=== PATIENT | female | born 1960 | race Caucasian/White ===

== ENCOUNTER 2018-02-23 02:07 | Observation (INO) | payer MEDICARE ==
[2018-02-23] VITALS (18 sets, daily range): BP systolic 80–138; BP diastolic 41–70
[~2018-02-23] VITALS: Ht 160 cm; Wt 97.0 kg
--- NOTE | 2018-02-23 02:07 | NUR ---
BY EMS TO ROOM 12
[2018-02-23] MEDS ORDERED: ESCITALOPRAM OX10 MG PO (02:29)
[2018-02-23] MEDS ORDERED: ATENOLOL25 MG PO (02:30)
[2018-02-23] MEDS ORDERED: ARMODAFINIL200 MG PO (02:31)
[2018-02-23] MEDS ORDERED: LYRICA50 MG PO (02:32)
[2018-02-23] MEDS ORDERED: VOLTAREN - GENE75 MG PO (02:33)
[2018-02-23] MEDS ORDERED: REXULTI0.5 MG PO (02:33)
[2018-02-23 02:34] LABS: HEMOGLOBIN 13.4 g/dl (12.0-16.0); IMMATURE GRANULOCYTES 0.3 % (0.0-5.0); MEAN CELL VOLUME 92.1 fL CALC (80.0-100.0); MEAN CORPUSCULAR HGB 30.1 pG CALC (26.0-32.0); MEAN CORPUSCULAR HGB CONC 32.7 g/L CALC (32.0-36.0); NEUT# 3.62 thou/uL (2.00-7.15); RED BLOOD COUNT 4.45 mill/uL (4.20-5.60); RED CELL DISTRI WIDTH 14.2 % (11.5-15.5)
[2018-02-23 02:49] LABS: ALBUMIN 4.2 g/dL (3.2-5.0); ALKALINE PHOSPHATASE 115 u/l (38-126); ANION GAP 15 (6-22 (CALC)); BILIRUBIN, TOTAL 0.5 mg/dL (0.0-1.4); BUN 29 mg/dL (7-17); BUN/CREATININE RATIO 29 (12-20 (CALC)); CARBON DIOXIDE 22 mmol/l (22-30); CHLORIDE 108 mmol/l (95-108); GFR 57 ML/MIN (>=60 (CALC)); GFR FOR AFR.AMER. > 60 ML/MIN (>=60 (CALC)); POTASSIUM 3.9 mmol/l (3.5-5.1); SGOT/AST 28 u/l (14-36); SODIUM 142 mmol/l (137-146); TOTAL PROTEIN 7.7 g/dL (6.3-8.2)
[2018-02-23 02:55] LABS: ACT PARTIAL THROMBO TIME 25.9 SECONDS (20.0-32.5); D-DIMER 0.29 mg/L (0.19-0.60); PROTHROMBIN TIME 10.1 SECONDS (9.0-12.5)
[2018-02-23 03:02] LABS: MYOGLOBIN 51 ng/mL (0 - 62)
[2018-02-23 03:21] LABS: TSH, 3RD GENERATION 3.97 uIU/mL (0.47 - 4.68)
--- NOTE | 2018-02-23 03:30 | NUR ---
PT RELATED CHEST PAIN 2-3
--- NOTE | 2018-02-23 03:43 | NUR ---
DR ANGELES AT BEDSIDE
--- NOTE | 2018-02-23 04:12 | NUR ---
REPORT GIVEN TO MARYCARMEN COLLAZO.
--- NOTE | 2018-02-23 04:15 | NUR ---
PT RELATED SHE FEELS BETTER. HR 80'S AFIB.
--- NOTE | 2018-02-23 04:25 | NUR ---
PT TO ICU VIA [facility] WITH RN.
--- NOTE | 2018-02-23 04:35 | NUR ---
PT TO ICU BED 1 VIA STRETCHER ACCOMPANIED BY ER STAFF. PT ABLE TO TRANSFER SELF TO BED. PT IS ALERT AND ORIENTED X3. ADMISSION ASSESSMENT COMPLETED AT THIS TIME. NITRO PASTE TO ABD REMOVED DUE TO BP 95/55. IV PATENT X1. PLAN OF CARE REVEIWED WITH PATIENT. LOVENOX GIVERN PER MD ORDERS AND MAR. ORIENTED PT TO ROOM AND UNIT AND CALL LIGHT SYSTEM. CALL LIGHT IN REACH. WILL CONTINUE TO MONITOR
--- NOTE | 2018-02-23 05:15 | NUR ---
CARDIZEM STOPPED DUE TO BP 80/48.
--- NOTE | 2018-02-23 05:20 | NUR ---
DR BERG NOTIFIED OF BP AND DC OF CARDIZEM DUE TO BP.
--- NOTE | 2018-02-23 05:46 | NUR ---
BP 78/51. MANUAL 80/50. INSTRUCTED PT TO LAY ON BACK FOR NOW INSTEAD OF SIDE, WILL CONTINUE TO MONITOR. PT REAMINS AFIB ON MONITOR.
--- NOTE | 2018-02-23 06:00 | NUR ---
PT RESTING IN BED BP SEEMS TO BE STABILIZING AT THIS TIME. WITH A BP OF 93/51. CALL LIGHT IN REACH. WILL CONTINUE TO MONITOR.
--- NOTE | 2018-02-23 07:15 | NUR ---
PT DOZING AROUSES EASILY TO VERBAL STIMULI, AM ASSESSMENT COMPLTED, IVF STOPPED CARDIZEM HAS BEEN OFF SINCE PREVIOUS SHIFT SITRE SALINE LOCKED, LUNGS CLEAR NO SOB OR DISTRESS NOTED, ABD SOFT AND BS ACTIVE, NO EDEMA NOTED, TELE REDAIN A FIB RATE 90-110'S, AFEBRILE, NO COMPLAINTS OF DISCOMFORT, PT REQUESTING TO USE BATHROOM, AMBULATED TO BATHROOM WITH STEADY GAIT, VOIDED 700 ML CLEAR YELLOW URINE W/O INCIDENT, BACK TO BED ADN ALL MONITORING EQUIPMENT RE-APPLIED, HR SLIGHTLY ELEVATED AFTER ACITVITY, WILL CONTINUE TO MONITOR. CALL IRVIN WITHIN REACH.
--- NOTE | 2018-02-23 07:35 | NUR ---
SET UP ASSIST FOR AM MEAL, CALL IRVIN WITHIN REACH
--- NOTE | 2018-02-23 07:45 | NUR ---
HOT TEA PROVIDED FOR PT INSTEAD OF COFFEE PER HER REQUEST, ASKING TO SPEAK TO PRACTICING DERMATOLOGIST RELATED TO "GLUTEN ISSUES", DIETARY NOTIFIED
--- NOTE | 2018-02-23 07:55 | NUR ---
PT CONVERTED TO SR, RATE INT HE 80'S WILL NOTIFY RT FOR EKG.
--- NOTE | 2018-02-23 08:07 | NUR ---
TOLERAT AM MEAL WELL, CALL IRVIN WITHIN REACH
--- NOTE | 2018-02-23 08:12 | NUR ---
ADORE IN DIETARY AWARE OF NEW DIET ORDER, AND NUTRITIONAL CONSULT.
--- NOTE | 2018-02-23 08:22 | NUR ---
PT AMBULATED TO BATHROOM AGAIN WTIH SBA, CALL IRVIN WITHIN REACH
--- NOTE | 2018-02-23 08:34 | NUR ---
SEWING MACHINE OPERATOR SEMIAUTOMATIC AT BEDSIDE.
--- NOTE | 2018-02-23 10:18 | NUR ---
IN TO SEE PT, PLAN OF CARE DISUSSED
--- NOTE | 2018-02-23 10:40 | NUR ---
PT BROUGHT HOME MEDICATION IN FOR VERIFICATION, PHARMACY NOTIFIED, CALL WITHIN REACH.
--- NOTE | 2018-02-23 11:33 | NUR ---
SET UP ASSIST FOR LUNCH PROVIDED, SPOUSE AT BEDSIDE, PT AMBULATES TO BATHROOM WITH STEADY GAIT, CALL IRVIN WITHIN REACH
--- NOTE | 2018-02-23 11:38 | NUR ---
1200 NITRO PASTE JOSÉ LUIS RELATED TO HR 59 AND BP 124/59, PT DENIES CHEST PAIN OR DISCOMFORT,
--- NOTE | 2018-02-23 13:04 | NUR ---
PT AMBULATED TO BATHROOM WITH STEADY GAIT AND NELLI BY ASSIST
--- NOTE | 2018-02-23 13:45 | NUR ---
PT BACK IN BED, RESTING WITH NO COMPLAINTS, VOIDS MODERATE AMOUNTS CLEAR YELLOW URINE, WILL CONTINUE TO MONITOR
--- NOTE | 2018-02-23 14:24 | NUR ---
PT AWARE OF PLANNED TRASNFER TO MED SURG WHEN BED AVAILABLE, CURRENTLY VISITING WITH VISITORS AT BEDSIDE, NO COMPLAINTS OF S/S OF DISTRESS/DISCOMFORT NOTED, WILL CONTINUE TO MONITOR
--- NOTE | 2018-02-23 15:12 | NUR ---
PT AMBULATED TO BATHROOM AND BACK WITH STAND BY ASSIST, CALL IRVIN WITHIN REACH, WILL CONTINUE TO MONITOR.
--- NOTE | 2018-02-23 15:15 | NUR ---
Spoke with patient about interaction concerns with armodafinil and esmolol and rexualti and esmolol in regards to arrhythmias. Explained that there is a risk of arrhythmias and BP changes but they are rare. Patient also concerned about bruising with diclofenac, which we explained there is a rare 3% risk. We advised the patient to tell her new PCP about her bleeding. We also counseled her on Eliquis.
--- NOTE | 2018-02-23 16:00 | NUR ---
PHLEBOTOMTY AT BEDSIDE FRO LAB DRAW
--- NOTE | 2018-02-23 17:12 | NUR ---
PT AMBULATES TO BATHROOM WITH STEADY GAIT, TOLERATES ACTIVITY WELL, SET UP ASSIST PROVIDED FOR PM MEAL.
--- NOTE | 2018-02-23 18:04 | NUR ---
PT TOLERATED PM MEAL, REMAINS IN SR WITH RATE 60-80, BPO STABLE, DENIES SOB OR CHEST PAIN, CALL IRVIN WITHIN REACH, WILL CONTINUE TO MONITOR.
--- NOTE | 2018-02-23 19:12 | NUR ---
REPORT FROM TAVIA COLLAZO. PT RESTING IN BED, ALERT AND ORIENTED X3. IV SITE APPEARS HEALTHY. PT DENIES ANY PAIN OR SOB. C/O SORE THROAT WILL CONTACT LEAD FORMER PHYSICIAN FOR [place]. ASSESSMENT COMPLETE. DISCUSSED POC. PT VERBALIZED UNDERSTANDING. CALL LIGHT WITHIN REACH. WILL CONTINUE TO MONITOR.
--- NOTE | 2018-02-23 23:02 | NUR ---
PT RESTING IN BED WITH EYES CLOSED. GUM SCORING MACHINE OPERATOR IN PLACE. RESPIRATIONS EVEN AND UNLABORED. CALL LIGHT WITHIN REACH. WILL CONTINUE TO MONITOR.
--- NOTE | 2018-02-24 03:05 | NUR ---
PT RESTING IN BED WITH EYES CLOSED. NO S/S OF DISTRESS NOTED. RESPIRATIONS EVEN AND UNLABORED. CALL LIGHT WITHIN REACH. WILL CONTINUE TO MONITOR.
[2018-02-24 04:00] VITALS: BP 143/62
[2018-02-24 05:30] LABS: HEMATOCRIT 39.2 % (37.0-47.0); HEMOGLOBIN 12.8 g/dl (12.0-16.0); IMMATURE GRANULOCYTES 0.2 % (0.0-5.0); MEAN CELL VOLUME 92.9 fL CALC (80.0-100.0); MEAN CORPUSCULAR HGB 30.3 pG CALC (26.0-32.0); MEAN CORPUSCULAR HGB CONC 32.7 g/L CALC (32.0-36.0); NEUT# 3.02 thou/uL (2.00-7.15); RED BLOOD COUNT 4.22 mill/uL (4.20-5.60); RED CELL DISTRI WIDTH 14.3 % (11.5-15.5)
[2018-02-24 05:56] LABS: ALBUMIN 3.7 g/dL (3.2-5.0); ALKALINE PHOSPHATASE 95 u/l (38-126); ANION GAP 10 (6-22 (CALC)); BILIRUBIN, TOTAL 0.6 mg/dL (0.0-1.4); BUN 20 mg/dL (7-17); BUN/CREATININE RATIO 26 (12-20 (CALC)); CARBON DIOXIDE 24 mmol/l (22-30); CHLORIDE 111 mmol/l (95-108); CREATININE 0.8 mg/dL (0.5-1.0); GFR > 60 ML/MIN (>=60 (CALC)); GFR FOR AFR.AMER. > 60 ML/MIN (>=60 (CALC)); MAGNESIUM 1.9 mg/dL (1.6-2.3); SGOT/AST 22 u/l (14-36); SODIUM 141 mmol/l (137-146); TOTAL PROTEIN 6.5 g/dL (6.3-8.2)
--- NOTE | 2018-02-24 06:09 | NUR ---
REPORT CALLED TO HARMEET SPAULDING ON [email or web address]. PT GOING TO ROOM 273.
[2018-02-24 06:25] VITALS: BP 97/65
--- NOTE | 2018-02-24 06:25 | NUR ---
PT ARRIVED TO THE UNIT VIA WC ACCOMPANIED BY STAFF. IV SITE IS INTACT. TELE MONITOR IN PLACE. PT AMBULATED TO THE BED WITHOUT ANY DIFFICULTY.
[2018-02-24 08:26] VITALS: BP 126/60
--- NOTE | 2018-02-24 08:26 | NUR ---
PT RESTING IN BED NO SIGNS OF DISTRESS NOTED, RESP EVEN AND UNLABORED. ALERT AND ORIENTED X3, DISCUSSED POC, HR WNL DENIES CP. ASSESSMENT COMPLETED AT THIS TIME. VSS, MEDICATED PER MAR, EDUCATED ON METOPROLOL, CALL LIGHT IN REACH, CONTINUE TO MONITOR.
--- NOTE | 2018-02-24 10:17 | NUR ---
VISITOR AT BEDSIDE, NEW BATTERIES PLACED IN TELEMETRY. PT VOICES NO NEEDS OR COMPLAINTS AT THIS TIME. CALL LIGHT IN REACH,CONTINUE TO MONITOR.
[2018-02-24 11:20] LABS: CHOLESTEROL HDL RATIO 8.1 (<4.4 (CALC))
[2018-02-24 11:43] VITALS: BP 143/67
[2018-02-24 15:35] VITALS: BP 124/70
[2018-02-24] MEDS ORDERED: ELIQUIS2.5 MG PO (16:10)
[2018-02-24] MEDS ORDERED: ZETIA10 MG PO (16:31)
--- NOTE | 2018-02-24 17:13 | NUR ---
Discharge instructions given. Patient verbalizes understanding of same. Discharged in stable condition via Wheelchair to Home with spouse. All belongings sent with pt.
[2018-02-25] MEDS ORDERED: TRAMADOL HCL50 MG PO (20:04)
[2018-02-25] MEDS ORDERED: FLEXERIL5 MG PO (20:05)
[2018-02-25] MEDS ORDERED: ALPRAZOLAM1 MG PO (20:06)
[2018-02-25] MEDS ORDERED: FLONASE AL50 MCG/ACT NAB (20:07)
[2018-02-25] MEDS ORDERED: VENTOLIN HFA IN (20:07)
[2018-02-25] MEDS ORDERED: DOXYCYCL HYC100 MG PO (21:26)
[2018-02-25] MEDS ORDERED: TORADOL PO (21:26)
== END 2018-02-24 17:18 | disposition home or self-care (01) ==
LOC: ED 02:07 → ED-I 03:20 → ED 03:52 → ICU 03:53 → MS2 03:53 → ICU 13:11 → MS2 02-24 06:25
PROVIDERS: Family Medicine; Internal Medicine Nephrology; Nurse Practitioner Family; ADMIT Internal Medicine; ATTEND Internal Medicine
DX: I48.0 Paroxysmal atrial fibrillation (principal); I10 Essential (primary) hypertension; M79.7 Fibromyalgia; M19.90 Unspecified osteoarthritis, unspecified site; F31.9 Bipolar disorder, unspecified; F43.10 Post-traumatic stress disorder, unspecified; G47.33 Obstructive sleep apnea (adult) (pediatric); J44.9 Chronic obstructive pulmonary disease, unspecified; E66.9 Obesity, unspecified; F41.0 Panic disorder [episodic paroxysmal anxiety]; F20.9 Schizophrenia, unspecified; T45.516A Underdosing of anticoagulants, initial encounter; Z91.128 Patient's intentional underdosing of medication regimen for other reason; Z68.37 Body mass index [BMI] 37.0-37.9, adult
CPT/HCPCS: J1650

== ENCOUNTER 2018-02-25 19:45 | Emergency (ER) | payer MEDICARE ==
[~2018-02-25] VITALS: Ht 160 cm; Wt 95.9 kg
[~2018-02-25 19:45] MED LIST: ARMODAFINIL200 MG PO; ATENOLOL25 MG PO; ELIQUIS2.5 MG PO; ESCITALOPRAM OX10 MG PO; LYRICA50 MG PO; REXULTI0.5 MG PO; VOLTAREN - GENE75 MG PO; ZETIA10 MG PO
[2018-02-25] MEDS ORDERED: TRAMADOL HCL50 MG PO (20:04)
[2018-02-25] MEDS ORDERED: FLEXERIL5 MG PO (20:05)
[2018-02-25] MEDS ORDERED: ALPRAZOLAM1 MG PO (20:06)
[2018-02-25] MEDS ORDERED: FLONASE AL50 MCG/ACT NAB (20:07)
[2018-02-25] MEDS ORDERED: VENTOLIN HFA IN (20:07)
[2018-02-25 20:17] LABS: HEMOGLOBIN 12.9 g/dl (12.0-16.0); IMMATURE GRANULOCYTES 0.2 % (0.0-5.0); MEAN CELL VOLUME 91.3 fL CALC (80.0-100.0); MEAN CORPUSCULAR HGB 30.2 pG CALC (26.0-32.0); MEAN CORPUSCULAR HGB CONC 33.1 g/L CALC (32.0-36.0); NEUT# 5.74 thou/uL (2.00-7.15); RED BLOOD COUNT 4.27 mill/uL (4.20-5.60); RED CELL DISTRI WIDTH 14.1 % (11.5-15.5)
[2018-02-25 20:56] LABS: ALKALINE PHOSPHATASE 93 u/l (38-126); ANION GAP 12 (6-22 (CALC)); BILIRUBIN, TOTAL 0.4 mg/dL (0.0-1.4); BUN 29 mg/dL (7-17); BUN/CREATININE RATIO 32 (12-20 (CALC)); CARBON DIOXIDE 24 mmol/l (22-30); CHLORIDE 109 mmol/l (95-108); CREATININE 0.9 mg/dL (0.5-1.0); GFR > 60 ML/MIN (>=60 (CALC)); GFR FOR AFR.AMER. > 60 ML/MIN (>=60 (CALC)); POTASSIUM 3.9 mmol/l (3.5-5.1); SGOT/AST 28 u/l (14-36); SODIUM 141 mmol/l (137-146); TOTAL PROTEIN 6.9 g/dL (6.3-8.2)
[2018-02-25 21:08] LABS: MYOGLOBIN 30 ng/mL (0 - 62)
[2018-02-25] MEDS ORDERED: DOXYCYCL HYC100 MG PO (21:26)
[2018-02-25] MEDS ORDERED: TORADOL PO (21:26)
[2018-02-25 21:50] VITALS: BP 127/63
== END 2018-02-25 21:50 | disposition home or self-care (01) ==
LOC: ED 19:45
PROVIDERS: Family Medicine
DX: M94.0 Chondrocostal junction syndrome [Tietze] (principal); J01.00 Acute maxillary sinusitis, unspecified; I48.91 Unspecified atrial fibrillation; M19.90 Unspecified osteoarthritis, unspecified site; I10 Essential (primary) hypertension; M79.7 Fibromyalgia; F41.9 Anxiety disorder, unspecified; F31.9 Bipolar disorder, unspecified; F20.9 Schizophrenia, unspecified

== ENCOUNTER 2018-03-09 10:22 | Observation (INO) | payer MEDICARE ==
[~2018-03-09] VITALS: Ht 160 cm; Wt 96.2 kg
[~2018-03-09 10:22] MED LIST changes: +ALPRAZOLAM1 MG PO; +DOXYCYCL HYC100 MG PO; +FLEXERIL5 MG PO; +FLONASE AL50 MCG/ACT NAB; +TORADOL PO; +TRAMADOL HCL50 MG PO; +VENTOLIN HFA IN
[2018-03-09 11:36] VITALS: BP 125/56
[2018-03-09 12:15] LABS: HEMATOCRIT 41.1 % (37.0-47.0); HEMOGLOBIN 13.4 g/dl (12.0-16.0); IMMATURE GRANULOCYTES 0.3 % (0.0-5.0); MEAN CELL VOLUME 92.6 fL CALC (80.0-100.0); MEAN CORPUSCULAR HGB 30.2 pG CALC (26.0-32.0); MEAN CORPUSCULAR HGB CONC 32.6 g/L CALC (32.0-36.0); NEUT# 4.3 thou/uL (2.00-7.15); RED BLOOD COUNT 4.44 mill/uL (4.20-5.60)
[2018-03-09 12:39] LABS: ALKALINE PHOSPHATASE 117 u/l (38-126); ANION GAP 13 (6-22 (CALC)); BILIRUBIN, TOTAL 0.3 mg/dL (0.0-1.4); BUN 25 mg/dL (7-17); BUN/CREATININE RATIO 28 (12-20 (CALC)); CARBON DIOXIDE 27 mmol/l (22-30); CHLORIDE 107 mmol/l (95-108); CREATININE 0.9 mg/dL (0.5-1.0); GFR > 60 ML/MIN (>=60 (CALC)); GFR FOR AFR.AMER. > 60 ML/MIN (>=60 (CALC)); POTASSIUM 4.6 mmol/l (3.5-5.1); SGOT/AST 20 u/l (14-36); SODIUM 142 mmol/l (137-146); TOTAL PROTEIN 6.9 g/dL (6.3-8.2)
[2018-03-09 13:22] LABS: URINE BILIRUBIN - DIPSTICK NEGATIVE (NEGATIVE); URINE BLOOD DIPSTICK NEGATIVE (NEGATIVE); URINE COLOR YELLOW; URINE GLUCOSE - DIPSTICK NEGATIVE (NEGATIVE); URINE KETONE NEGATIVE (NEGATIVE); URINE LEUK ESTERASE NEGATIVE (NEGATIVE); URINE NITRITE - DIPSTICK NEGATIVE (Negative); URINE PROTEIN - DIPSTICK NEGATIVE (NEG-TRACE); URINE UROBILINOGEN - DIPSTICK 0.2 E.U./dL (0.2)
[2018-03-09] MEDS ORDERED: ULTRAM50 M1 PO (13:54)
[2018-03-09] MEDS ORDERED: XANAX1 MG PO (13:59)
[2018-03-09] MEDS ORDERED: DIGOXIN0.125 MG PO (14:03)
[2018-03-09] MEDS ORDERED: LOPRESSOR50 M1 PO (14:08)
[2018-03-09] MEDS ORDERED: MAGNESIUM500 M2 PO (14:16)
[2018-03-09] MEDS ORDERED: [UNRECOGNIZED DRUG - OTHER] PO (14:20)
[2018-03-09] MEDS ORDERED: FISH OIL1000 MG PO (14:21)
[2018-03-09] MEDS ORDERED: PROBIOTI3 (14:22)
[2018-03-09] MEDS ORDERED: [UNRECOGNIZED DRUG - OTHER] PO (14:48)
[2018-03-09 15:37] VITALS: BP 115/55
== END 2018-03-09 20:28 | disposition home or self-care (01) ==
LOC: MS2 10:22
PROVIDERS: ADMIT Internal Medicine Geriatric Medicine; ATTEND Internal Medicine Geriatric Medicine
DX: R42 Dizziness and giddiness (principal); R53.1 Weakness; R07.9 Chest pain, unspecified; I10 Essential (primary) hypertension; I34.1 Nonrheumatic mitral (valve) prolapse; F41.1 Generalized anxiety disorder; I25.10 Atherosclerotic heart disease of native coronary artery without angina pectoris; K21.9 Gastro-esophageal reflux disease without esophagitis; K27.9 Peptic ulcer, site unspecified, unspecified as acute or chronic, without hemorrhage or perforation; F20.9 Schizophrenia, unspecified; G47.33 Obstructive sleep apnea (adult) (pediatric); F31.9 Bipolar disorder, unspecified; Z91.81 History of falling

== ENCOUNTER 2018-03-21 13:25 | Observation (INO) | payer MEDICARE ==
[~2018-03-21] VITALS: Ht 160 cm; Wt 96.2 kg
[~2018-03-21 13:25] MED LIST changes: +DIGOXIN0.125 MG PO; +FISH OIL1000 MG PO; +LOPRESSOR50 M1 PO; +MAGNESIUM500 M2 PO; +PROBIOTI3; +ULTRAM50 M1 PO; +XANAX1 MG PO; +[UNRECOGNIZED DRUG - OTHER] PO; +[UNRECOGNIZED DRUG - OTHER] PO
--- NOTE | 2018-03-21 13:36 | NUR ---
to tx room with steady gait
--- NOTE | 2018-03-21 13:40 | NUR ---
IN ROOM 15. CALLED TO LET HIM KNOW THAT SHE IS IN ER. COOPERATIVE. HEART MONITOR (FROM DR SHEPPARD'S OFFICE IS IN PLACE)
--- NOTE | 2018-03-21 14:00 | NUR ---
UNABLE TO REMOVE WEDDING BAND "FINGER TOO SWOLLEN". PT KEEPING GLASSES.
--- NOTE | 2018-03-21 14:20 | NUR ---
PT REPORTS SHE SEES DR WEAVER AT DR QUINTERO'S OFFICE IN [place]
[2018-03-21 14:44] LABS: BARBITURATES NEGATIVE (NEGATIVE); COCAINE NEGATIVE (NEGATIVE); METHADONE NEGATIVE (NEGATIVE); OXCYCODONE NEGATIVE (NEGATIVE); TETRAHYDROCANNABIONOL NEGATIVE (NEGATIVE); TRICYLIC ANTIDEPRESSANTS NEGATIVE (NEGATIVE)
[2018-03-21 14:55] LABS: HEMATOCRIT 39.7 % (37.0-47.0); HEMOGLOBIN 12.9 g/dl (12.0-16.0); IMMATURE GRANULOCYTES 0.1 % (0.0-5.0); MEAN CELL VOLUME 93.6 fL CALC (80.0-100.0); MEAN CORPUSCULAR HGB 30.4 pG CALC (26.0-32.0); MEAN CORPUSCULAR HGB CONC 32.5 g/L CALC (32.0-36.0); NEUT# 4.45 thou/uL (2.00-7.15); RED BLOOD COUNT 4.24 mill/uL (4.20-5.60); RED CELL DISTRI WIDTH 14.7 % (11.5-15.5)
--- NOTE | 2018-03-21 15:00 | NUR ---
ASSUMING CARE PATIENT STATES CHEST PAIN AT THIS TIME 2 ON 0-10 SCALE. PATIENT DENIES SUICIDAL IDEATIONS AT THIS TIME. PATIENT STATES SUICIDAL IDEATIONS COME AND GO AND SHE JUST NEEDS HER MEDS ADJUSTED.
[2018-03-21 15:47] LABS: ANION GAP 14 (6-22 (CALC)); BUN 20 mg/dL (7-17); BUN/CREATININE RATIO 23 (12-20 (CALC)); CARBON DIOXIDE 27 mmol/l (22-30); CHLORIDE 106 mmol/l (95-108); CREATININE 0.9 mg/dL (0.5-1.0); ETHYL ALCOHOL 0 mg/dl (0-30); GFR > 60 ML/MIN (>=60 (CALC)); GFR FOR AFR.AMER. > 60 ML/MIN (>=60 (CALC)); POTASSIUM 4.2 mmol/l (3.5-5.1); SODIUM 143 mmol/l (137-146)
--- NOTE | 2018-03-21 16:03 | NUR ---
patient resting awaiting dispostion. patient denies any chest pain or suicidal ideation at this time
--- NOTE | 2018-03-21 16:35 | NUR ---
report called to icu patient awaiting admitting orders. patient denies any chest pain or suicidal ideations at this time
--- NOTE | 2018-03-21 16:36 | NUR ---
[employer] Telephone Clerk at bedside
--- NOTE | 2018-03-21 16:52 | NUR ---
PATIENT PRAYING WITH SOCIALLY RESPONSIBLE INVESTMENT ADVISER AND THEN WILL TRANSPORT TO ICU
--- NOTE | 2018-03-21 17:05 | NUR ---
PT ADMITTED TO ICU BED 4 [place] ACT MEDICALLY ON HOLD FOR COMPLAINT OF CHEST PAIN, PT ALERT AND ORIENTED, PLEASANT AND COOPERTAIVE, STATES SHE HAS HAD SIGNIFICANT STRESS RECENTLY AND THEN MEDICATION CHANGES RECENTLY AND FEELS THAT IT JUST CAUGHTER UP WITH HER AND SHE VERBALIZED THAT SHE THOUGHT ABOUT TAKING ALL OF HER PILLS TO THE MATERIAL ASSISTANT AT HER PCP OFFICE. PT DENIES FEELING THAT WAY AT THIS TIME, ADMISSION ASSESSMENT COMPLETED SEE INTERVENTIONS, LUNGS CLEAR NO SOB OR DISTRESS O2 PLACED PER CARDIAC PROTOCOL, NO EDEMA, TELE READING SR RATE INTHE 70-80'S BP STABLE, NOP COMPLAINTS OF PAIN OR DISCOMFORT, ALL MONITORING EQUIPMENT EXPLAINED PRIOR TO APPLICATION, CALL IRVIN WITHIN REACH, WILL CONTINUE TO MONITOR.
[2018-03-21 17:15] VITALS: BP 138/61
[2018-03-21 17:30] VITALS: BP 134/61
[2018-03-21 17:45] VITALS: BP 133/60
--- NOTE | 2018-03-21 17:45 | NUR ---
SET UP ASSIST PROVIDED FOR PM MEAL, CALL IRVIN WITHIN REACH
--- NOTE | 2018-03-21 18:34 | NUR ---
BROUGHT HOME CPAP MACHINE, WILL NOTIFY R.T. FOR SET UP
[2018-03-21 19:31] VITALS: BP 140/63
--- NOTE | 2018-03-21 20:15 | NUR ---
PT SITTING UP IN BED WATCHING TV. PT IS ALERT AND ORIENTED X3. SHIFT ASSESSMENT COMPLETED AT THIS TIME. IV PATENT. SITTER IN ROOM 1:1 WITH PT. CALL LIGHT IN REACH. WILL CONTINUE TO MONITOR.
[2018-03-21 20:40] VITALS: BP 110/62
--- NOTE | 2018-03-21 20:45 | NUR ---
HS MEDS GIVEN PER APR. SITTER REMAINS IN ROOM 1:1 WITH PT.
[2018-03-21 21:44] VITALS: BP 108/60
--- NOTE | 2018-03-21 22:34 | NUR ---
PT RESTING IN BED WITH EYES CLOSED. RESP ARE EVEN AND UNLABORED. NO DISTRESS NOTED. CALL LIGHT IN REACH. SITTER 1:1 IN ROOM. WILL CONTINUE TO MONIOTR.
[2018-03-22] VITALS (7 sets, daily range): BP systolic 92–113; BP diastolic 49–60
--- NOTE | 2018-03-22 | NUR ---
PATIENT RESTING IN BED, EYES CLOSED NO DISCOMFORTS NOTED AT THIS TIME, HOOKED TO CPAP WITH EVEN UNLABORED BREATHING, SITTER 1:1. WILL CONTINUE TO MONITOR.
--- NOTE | 2018-03-22 02:05 | NUR ---
PATIENT CURRENTLY RESTING IN BED, NO DISCOMFORTS NOTED AT THIS TIME, HOOKED TO CPAP MACHINE POX 98% WITH EVEN UNLABORED BREATHING, WITH AN ONGOING IVF OF D5%.45 NACL @75 CC/HR INFUSING WELL AT LAC, SITTER 1:1 IN ROOM, WILL CONTINUE TO MONITOR.
--- NOTE | 2018-03-22 03:51 | NUR ---
PATIENT RESTING IN BED, EYES CLOSED NO DISCOMFORTS NOTED AT THIS TIME, EVEN UNLABORED BREATHING, HOOKED TO CPAP, ON 1:1 SITTER, WILL CONTINUE TO MONITOR.
--- NOTE | 2018-03-22 05:08 | NUR ---
RT AT BEDSIDE COMPLETING AM EKG
--- NOTE | 2018-03-22 05:30 | NUR ---
PATIENT AWAKE, DENIES PAIN OR DISCONFORT AT THIS TIME, ASSISTED TO BEDSIDE COMMODE, THEN BACK TO BED, REMAINS ON 1:1.WILL CONTINUE TO MONITOR.
--- NOTE | 2018-03-22 06:07 | NUR ---
LIFE SCIENCES MANAGER AT BEDSIDE TO DRAW AM LABS
[2018-03-22 06:14] LABS: HEMATOCRIT 38.7 % (37.0-47.0); HEMOGLOBIN 12.6 g/dl (12.0-16.0); IMMATURE GRANULOCYTES 0.3 % (0.0-5.0); MEAN CELL VOLUME 94.4 fL CALC (80.0-100.0); MEAN CORPUSCULAR HGB 30.7 pG CALC (26.0-32.0); MEAN CORPUSCULAR HGB CONC 32.6 g/L CALC (32.0-36.0); NEUT# 2.79 thou/uL (2.00-7.15); RED BLOOD COUNT 4.1 mill/uL (4.20-5.60); RED CELL DISTRI WIDTH 14.8 % (11.5-15.5)
[2018-03-22 06:34] LABS: ALBUMIN 3.6 g/dL (3.2-5.0); ALKALINE PHOSPHATASE 103 u/l (38-126); ANION GAP 11 (6-22 (CALC)); BILIRUBIN, TOTAL 0.5 mg/dL (0.0-1.4); BUN 13 mg/dL (7-17); BUN/CREATININE RATIO 19 (12-20 (CALC)); CARBON DIOXIDE 26 mmol/l (22-30); CHLORIDE 108 mmol/l (95-108); CREATININE 0.7 mg/dL (0.5-1.0); GFR > 60 ML/MIN (>=60 (CALC)); GFR FOR AFR.AMER. > 60 ML/MIN (>=60 (CALC)); POTASSIUM 4.2 mmol/l (3.5-5.1); SGOT/AST 25 u/l (14-36); SODIUM 141 mmol/l (137-146); TOTAL PROTEIN 6.3 g/dL (6.3-8.2)
--- NOTE | 2018-03-22 07:25 | NUR ---
PT RESTING IN BED, ALERT AND OREINTED, AM ASSESSMENT COMPLETED SEE INTERVENTIONS, SKIN WARM AND DRY TELE READING SR-SB RATE IN THE 50-60'S, B/P STABLE SLIGHTLY HYPOTENSIVE BUT PT STATES IT HAPPENS OCCASIONALLY AT HOME, PT ASYMPTOMATIC, IV ACCESS INTACT IN LEFT AC, IVF INFUSING AT PRESCRIBED RATE, SITTER REMAINS AT BEDSIDE FOR SAFETY, LUNGS CLEAR WITH NO SOB OR DISTRESS NOTED, ABD SOFT, BS ACTIVE, COMFORT MEASURES PROVIDED, CALL IRVIN WITHIN REACH, WILL CONTINUE TO MONITOR.
--- NOTE | 2018-03-22 08:19 | NUR ---
AT BEDSIDE, PLAN OF CARE DISCUSSED, PT OFFERS NO NE WCOMPLAINTS, CONTINUES TO DENY CHEST PAIN, DOES COMPLAIN OF OCCASIONAL ANXIETY (NOT NEW) COMFORT MEASURES PROVIDED, SITTER REMAINS AT BEDSIDE FOR SAFETY, WILL CONTINUE TO MONITOR.
--- NOTE | 2018-03-22 09:06 | NUR ---
P[T TOLERATED AM MEAL WELL, OFFERS NO COMPLAINTS, CALL IRVIN WITHIN REACH
--- NOTE | 2018-03-22 10:10 | NUR ---
HARRIS GREGORIO RN SPOKE WITH PEDRITO FROM [place], REPORT PROVIDED AWAITING PAPER WORK FROM [facility] FOR REVIEW, WILL NOTIFY [facility] STAFF WITH FINAL ACCEPTANCE.
--- NOTE | 2018-03-22 11:52 | NUR ---
PER AJITH Gordon/SWETA WILSON AT [facility] HAS GIVEN PT ACCEPTANCE AND BED ASSIGNMENT, WILL CALL [facility].
--- NOTE | 2018-03-22 13:05 | NUR ---
[facility] OFFICER AT BEDSIDE AMBULATED OFF UNIT WITH BELONGINGS SENT WITH OFFICER PT HAS CPAP IN HAND.
--- NOTE | 2018-03-22 13:05 | NUR ---
PT D/C'D TO [facility] ALL PAPERWORK SENT WITH OFFICER WELL
== END 2018-03-22 13:06 ==
LOC: ED 13:25 → ED-I 15:50 → ED 16:05 → ICU 16:07
PROVIDERS: Family Medicine; ADMIT Internal Medicine Geriatric Medicine; ATTEND Internal Medicine Geriatric Medicine
DX: R07.9 Chest pain, unspecified (principal); R45.851 Suicidal ideations; I10 Essential (primary) hypertension; I48.0 Paroxysmal atrial fibrillation; F31.9 Bipolar disorder, unspecified; F20.9 Schizophrenia, unspecified; E66.9 Obesity, unspecified; Z68.37 Body mass index [BMI] 37.0-37.9, adult; Z91.5 Personal history of self-harm

== ENCOUNTER 2018-04-26 18:31 | Emergency (ER) | payer MEDICARE ==
[~2018-04-26] VITALS: Ht 160 cm; Wt 95.0 kg
[2018-04-26] MEDS ORDERED: ABILIFY5 MG PO (19:11)
[2018-04-26] MEDS ORDERED: ATIVAN0.5 MG PO (19:12)
[2018-04-26] MEDS ORDERED: BENTYL10 MG PO (19:18)
[2018-04-26] MEDS ORDERED: OMEPRAZOLE20 M2 PO (19:19)
[2018-04-26 19:51] LABS: HEMATOCRIT 36.8 % (37.0-47.0); HEMOGLOBIN 12.1 g/dl (12.0-16.0); IMMATURE GRANULOCYTES 0.4 % (0.0-5.0); MEAN CELL VOLUME 92.2 fL CALC (80.0-100.0); MEAN CORPUSCULAR HGB 30.3 pG CALC (26.0-32.0); MEAN CORPUSCULAR HGB CONC 32.9 g/L CALC (32.0-36.0); NEUT# 6.43 thou/uL (2.00-7.15); RED BLOOD COUNT 3.99 mill/uL (4.20-5.60); RED CELL DISTRI WIDTH 15.4 % (11.5-15.5)
[2018-04-26 19:58] LABS: URINE BILIRUBIN - DIPSTICK NEGATIVE (NEGATIVE); URINE BLOOD DIPSTICK NEGATIVE (NEGATIVE); URINE COLOR YELLOW; URINE GLUCOSE - DIPSTICK NEGATIVE (NEGATIVE); URINE KETONE NEGATIVE (NEGATIVE); URINE LEUK ESTERASE NEGATIVE (NEGATIVE); URINE NITRITE - DIPSTICK NEGATIVE (Negative); URINE PH 5.5 (4.5-8.0); URINE PROTEIN - DIPSTICK NEGATIVE (NEG-TRACE); URINE SPECIFIC GRAVITY 1.015; URINE UROBILINOGEN - DIPSTICK 0.2 E.U./dL (0.2)
[2018-04-26 20:33] LABS: ALBUMIN 3.9 g/dL (3.2-5.0); ALKALINE PHOSPHATASE 106 u/l (38-126); ANION GAP 10 (6-22 (CALC)); BILIRUBIN, TOTAL 0.4 mg/dL (0.0-1.4); BUN 17 mg/dL (7-17); BUN/CREATININE RATIO 22 (12-20 (CALC)); CARBON DIOXIDE 27 mmol/l (22-30); CHLORIDE 107 mmol/l (95-108); CREATININE 0.8 mg/dL (0.5-1.0); GFR > 60 ML/MIN (>=60 (CALC)); GFR FOR AFR.AMER. > 60 ML/MIN (>=60 (CALC)); POTASSIUM 3.8 mmol/l (3.5-5.1); SGOT/AST 17 u/l (14-36); SODIUM 140 mmol/l (137-146); TOTAL PROTEIN 6.5 g/dL (6.3-8.2)
[2018-04-26 21:30] LABS: MYOGLOBIN 25 ng/mL (0 - 62)
[2018-04-26] MEDS ORDERED: ULTRAM50 M1 PO (22:43)
[2018-04-26 23:15] VITALS: BP 117/61
== END 2018-04-26 23:15 | disposition home or self-care (01) ==
LOC: ED 18:31
PROVIDERS: Emergency Medicine
DX: R10.31 Right lower quadrant pain (principal); I48.91 Unspecified atrial fibrillation; R07.9 Chest pain, unspecified; M79.604 Pain in right leg; Z98.61 Coronary angioplasty status
CPT/HCPCS: Q9967

== ENCOUNTER 2018-05-13 13:35 | Observation (INO) | payer MEDICARE ==
[~2018-05-13] VITALS: Ht 160 cm; Wt 96.0 kg
[~2018-05-13 13:35] MED LIST changes: +ABILIFY5 MG PO; +ATIVAN0.5 MG PO; +BENTYL10 MG PO; +OMEPRAZOLE20 M2 PO; -VENTOLIN HFA IN
--- NOTE | 2018-05-13 13:58 | NUR ---
PT IMMIDIATLY TO TX ROOM
--- NOTE | 2018-05-13 14:00 | NUR ---
RESTING IN NO ACUTE DISTRESS
[2018-05-13] MEDS ORDERED: LEXAPRO20 MG PO (14:05)
[2018-05-13] MEDS ORDERED: LYRICA50 MG PO (14:06)
[2018-05-13 14:23] LABS: HEMATOCRIT 38.8 % (37.0-47.0); HEMOGLOBIN 12.4 g/dl (12.0-16.0); IMMATURE GRANULOCYTES 0.3 % (0.0-5.0); MEAN CELL VOLUME 91.5 fL CALC (80.0-100.0); MEAN CORPUSCULAR HGB 29.2 pG CALC (26.0-32.0); NEUT# 6.17 thou/uL (2.00-7.15); RED BLOOD COUNT 4.24 mill/uL (4.20-5.60); RED CELL DISTRI WIDTH 14.4 % (11.5-15.5)
--- NOTE | 2018-05-13 14:42 | NUR ---
MEDICATED ORDERED FOR PAIN/NAUSEA.
[2018-05-13 14:55] LABS: ALBUMIN 3.7 g/dL (3.2-5.0); ALKALINE PHOSPHATASE 107 u/l (38-126); ANION GAP 13 (6-22 (CALC)); BILIRUBIN, TOTAL 0.3 mg/dL (0.0-1.4); BUN 20 mg/dL (7-17); BUN/CREATININE RATIO 27 (12-20 (CALC)); CARBON DIOXIDE 23 mmol/l (22-30); CHLORIDE 108 mmol/l (95-108); CREATININE 0.7 mg/dL (0.5-1.0); GFR > 60 ML/MIN (>=60 (CALC)); GFR FOR AFR.AMER. > 60 ML/MIN (>=60 (CALC)); POTASSIUM 4.1 mmol/l (3.5-5.1); SGOT/AST 23 u/l (14-36); SODIUM 140 mmol/l (137-146); TOTAL PROTEIN 6.2 g/dL (6.3-8.2)
--- NOTE | 2018-05-13 15:00 | NUR ---
STATES PAIN 1/10, DOZING AT INTERVALS, DENIES NAUSEA
[2018-05-13 15:07] LABS: MYOGLOBIN 20 ng/mL (0 - 62)
--- NOTE | 2018-05-13 15:45 | NUR ---
TRANSPORTED VIA STRETCHER TO ROOM 262 WITH RN IN ATTENDANCE. PT WITH NEAR SYNCOPAL EPISODE OBSERVED, PLACED TO BED WITH ASSISTANCE X [address] SHEPPARD NOTIFIED, NO ORDERS GIVEN. NO CHANGE IN TELEMETRY DURING INCIDENT.
[2018-05-13 15:50] VITALS: BP 102/68
--- NOTE | 2018-05-13 15:50 | NUR ---
PT ARRIVED TO [facility]2 VIA STRETCHER ACCOMPIANED BY ZAY SOOD AND SPOUSE. PT AMBULATED FROM BED TO STRETCHER W/ ASSISTANCE. SEVERAL MOMENTS AFTER GETTING IN BED DERICK GUZMÁN CALLED OUT TO SPECIAL PROJECTS COORDINATOR. UPON MYSELF AND ZAY SOOD ENTERING PT LYING IN BED, NEAR PASSING OUT. BED ADJUSTED. O2 @2L APPLIED. VS DONE. PT APPEARED TO BE IN NO DISTRESS. VS STABLE. PT INSTRUCTED NOT TO GET OUT OF BED W/O ASSISTANCE BY ZAY SOOD DUE TO PREVIOUS PAIN MEDICATION ADMINISTRATION HAVING SIDE EFFECTS. PT STATES UNDERSTANDING. ASSESSMENT COMPLETED AT THIS TIME BY SPECIAL PROJECTS COORDINATOR. PT A/O X3. SPEECH IS CLEAR. PALE IN COLOR AT THIS TIME. PT C/O NAUSEA; LIGHTS DIMMED FOR COMFORT. PERRLA. RESP EVEN AND UNLABORED. LUNG SOUNDS CLEAR. TELE IN PLACE. BOWEL SOUNDS ACTIVE X4. ALL ABDOMINAL QUADRANTS TENDER. PT C/O EPIGASTRIC PAIN; SHARP/DULL. 8 OUT OF 10 ON PAIN SCALE. MEDICATION ADMINISTRATION DISCUSSED W/ PT. PT STATES UNDERSTANDING. REPOSITIONED IN BED FOR COMFORT. STRONG RADIAL AND PEDAL PULSES. #20 RFA SL. FLUSHED AND PATENT. SITE APPEARS HEALTHY. SKIN INTACT. PT DENIES ANY FURTHER NEEDS. POC DISCUSSED. SAFETY PRECAUTIONS IN PLACE. CALL LIGHT IN REACH. SPOUSE AT BEDSIDE. WILL CONTINUE TO MONITOR.
[2018-05-13 16:50] VITALS: BP 110/70
[2018-05-13 19:00] VITALS: BP 108/56
--- NOTE | 2018-05-13 20:03 | NUR ---
PATIENT RESTING IN BED WITH O2 VIA NASAL CANNUAL IN PLACE. PATIENT IS AWAKE ALERT AND ORIENTEDX3. PATIENT WITH C/O SEVERE EPIGASTRIC PAIN. MEDICATED WITH VALARIE MAGIC MOUTHWASH, BENTYL, PROTONIX FOR EPIGASTRIC PAIN. IV SITE TO RIGHT FOREARM INTACT WITH IVF NS PATENT AND INFUSING AT 125CC/HR. SITE IS HEALTHY AT THIS TIME. ABD IS SOFT WITH BS+. STATES THAT SHE HAD BM TODAY. DENIES ANY DIFFICULTY WITH URINATION. TELE MONITOR IN PLACE. NO PEDAL EDEMA NOTED AND PULSES ARE PALPABLE. SAFETY PRECAUTIONS REINFORCED. CALL LIGHT IN REACH. WILL CONT TO MONITOR.
--- NOTE | 2018-05-13 21:41 | NUR ---
PATIENT RESTING IN BED-AWAKE AND ALERT-CONT TO C/O CHEST PRESSURE 3/10 ON PAIN SCALE. SCHEDULED EKG DONE. NO NAUSEA AT THIS TIME. DR. SHEPPARD AWARE OF PATIENT COMPLAINTS. NO NEW ORDERS AT THIS TIME. CALL LIGHT IN REACH. WILL CONT TO MONITOR.
[2018-05-14] VITALS (7 sets, daily range): BP systolic 90–110; BP diastolic 45–62
--- NOTE | 2018-05-14 00:37 | NUR ---
PATIENT CONT TO C/O SHARP ABD PAIN AND CHEST PAIN-6/10 ON PAIN SCALE-MEDICATED WITH DILAUDID 1MG IVP FOR PAIN AND MYLANTA 300CC FOR ABD PAIN ORDERED. IVF PATENT AND INFUSING ORDERED. CALL LIGHT IN REACH. WILL CONT TO MONITOR. PATIENT WITH C-PAP IN PLACE.
--- NOTE | 2018-05-14 03:23 | NUR ---
APPEARS SLEEPING WITH C-PAP IN PLACE AND POSITIONED ON LEFT SIDE. IVF PATENT AND INFUSING ORDERED. TELE MONITOR IN PLACE. CALL LIGHT IN REACH. WILL CONT TO MONITOR.
[2018-05-14 06:43] LABS: ALBUMIN 3.2 g/dL (3.2-5.0); ALKALINE PHOSPHATASE 102 u/l (38-126); ANION GAP 10 (6-22 (CALC)); BILIRUBIN, TOTAL 0.4 mg/dL (0.0-1.4); BUN 17 mg/dL (7-17); BUN/CREATININE RATIO 20 (12-20 (CALC)); CARBON DIOXIDE 25 mmol/l (22-30); CHLORIDE 109 mmol/l (95-108); CHOLESTEROL HDL RATIO 5.4 (<4.4 (CALC)); CREATININE 0.8 mg/dL (0.5-1.0); GFR > 60 ML/MIN (>=60 (CALC)); GFR FOR AFR.AMER. > 60 ML/MIN (>=60 (CALC)); HDL CHOLESTEROL 48 mg/dL (>=40); SGOT/AST 40 u/l (14-36); SODIUM 140 mmol/l (137-146); TOTAL PROTEIN 5.6 g/dL (6.3-8.2); TOTAL TRIGLYCERIDES 106 mg/dl (30-149); VLDL CHOLESTROL 21 mg/dl (2-49 (CALC))
[2018-05-14 07:02] LABS: HEMATOCRIT 34.4 % (37.0-47.0); HEMOGLOBIN 10.8 g/dl (12.0-16.0); IMMATURE GRANULOCYTES 0.2 % (0.0-5.0); MEAN CORPUSCULAR HGB 29.8 pG CALC (26.0-32.0); MEAN CORPUSCULAR HGB CONC 31.4 g/L CALC (32.0-36.0); NEUT# 5.96 thou/uL (2.00-7.15); RED BLOOD COUNT 3.62 mill/uL (4.20-5.60); RED CELL DISTRI WIDTH 14.6 % (11.5-15.5)
--- NOTE | 2018-05-14 07:10 | NUR ---
PT REPORT RECIEVED FROM ZAY CANSECO. PT RESTING. NO S/S OF DISTRESS. CALL LIGHT IN REACH. WILL CONTINUE TO MONITOR.
[2018-05-14 07:28] LABS: CALCULATED LDLCHOLESTEROL 191 mg/dL (62-129 (CALC)); TOTAL CHOLESTEROL 260 mg/dl (0-199)
--- NOTE | 2018-05-14 08:04 | NUR ---
PT A/O X3. SPEECH IS CLEAR. RESP EVEN AND UNLABORED. LUNG SOUNDS CLEAR. TELE IN PLACE. BOWEL SOUNDS ACTIVE X4. STRONG RADIAL AND PEDAL PULSES. #20 RFA SL. FLUSHED AND PATENT. SITE APPEARS HEALTHY. SKIN INTACT. NO C/O PAIN OR NEEDS. CALL LIGHT IN REACH. WILL CONTINUE TO MONITOR.
--- NOTE | 2018-05-14 12:31 | NUR ---
PT EATING LUNCH, NO C/O PAIN OR NEEDS. CALL LIGHT IN REACH. WILL CONTINUE TO MONITOR
--- NOTE | 2018-05-14 16:00 | NUR ---
PT LYING IN BED WATCHING TELEVISION. NO C/O PAIN OR NEEDS. CALL LIGHT IN REACH. WILL CONTINUE TO MONITOR.
--- NOTE | 2018-05-14 19:00 | NUR ---
RECEIVEED REPORT FROM NURSE TOM, PATIENT IN BED, WATCHING TV, NO DISCOMFORTS NOTED ATHIS TIME.
--- NOTE | 2018-05-14 20:00 | NUR ---
PATIENT ALERT AND ORIENTEDX3 ABLE TO MAKE NEEDS KNOWN, WITH SALINE LOCK ON RT FOREARM,PATENT AND FLUSHES WELL, LAST BM 05/13, EVEN UNLABOREED BREATHING DENIES CHEST PAIN.[facility]
--- NOTE | 2018-05-14 23:43 | NUR ---
PATIENT INSTRUCTED ON NPO POST MIDNIGHT PT IS TO UNDERGO UPPER GI SERIES IN AM.
--- NOTE | 2018-05-15 03:33 | NUR ---
PATIENT APPEARS TO BE SLEEPING, WEARING CPAP WITH EVEN UNLABORED BREATHING, NO DISCOMFORTS NOTED AT THIS TIME, CALL LIGHT AT REACH
[2018-05-15 04:31] VITALS: BP 120/50
[2018-05-15 05:09] LABS: HEMOGLOBIN 11.3 g/dl (12.0-16.0); IMMATURE GRANULOCYTES 0.3 % (0.0-5.0); MEAN CELL VOLUME 93.3 fL CALC (80.0-100.0); MEAN CORPUSCULAR HGB 29.3 pG CALC (26.0-32.0); MEAN CORPUSCULAR HGB CONC 31.4 g/L CALC (32.0-36.0); NEUT# 4.37 thou/uL (2.00-7.15); RED BLOOD COUNT 3.86 mill/uL (4.20-5.60); RED CELL DISTRI WIDTH 14.5 % (11.5-15.5)
[2018-05-15 05:21] LABS: ALBUMIN 3.4 g/dL (3.2-5.0); ALKALINE PHOSPHATASE 107 u/l (38-126); ANION GAP 10 (6-22 (CALC)); BILIRUBIN, TOTAL 0.4 mg/dL (0.0-1.4); BUN 13 mg/dL (7-17); BUN/CREATININE RATIO 16 (12-20 (CALC)); CARBON DIOXIDE 29 mmol/l (22-30); CHLORIDE 106 mmol/l (95-108); CREATININE 0.8 mg/dL (0.5-1.0); GFR > 60 ML/MIN (>=60 (CALC)); GFR FOR AFR.AMER. > 60 ML/MIN (>=60 (CALC)); SGOT/AST 22 u/l (14-36); SODIUM 141 mmol/l (137-146); TOTAL PROTEIN 5.8 g/dL (6.3-8.2)
--- NOTE | 2018-05-15 06:34 | NUR ---
PATIENT APPEARS TO BE SLEEPING IN BED, WEARING CPAP, EVEN UNLABORED BREATHING NO DISCOMFORTS NOTED AT THIS TIME.
--- NOTE | 2018-05-15 06:55 | NUR ---
RPORT RECEIVED FROM NIGHT NURSE; PT LAYING IN BED AWAKE; AWARE OF NPO STATUS; EMPTIED 1000CC CLEAR YELLOW URINE; CALL IRVIN IN REACH.
[2018-05-15 07:30] VITALS: BP 109/53
--- NOTE | 2018-05-15 07:30 | NUR ---
ASSESSMENT COMPLETED; PT A/O X4; RESP EVEN AND UNLABORED ON ROOM AIR; IV TO RFA FLUSHED WITHOUT DIFFICUTLY, SITE APPEARS HEALTY; PHOTOGRAPHY SPOTTER INFORMED PT OF UPPER GI SERIES & NPO STATUS; AMBULATORY IN ROOM; SAFETY PRECAUTION REINFORCE; BED IN LOW LOCKED POSITION, CALL IRVIN IN REACH;.
[2018-05-15] MEDS ORDERED: FLONASE AL50 MCG/ACT NAB (09:09)
[2018-05-15] MEDS ORDERED: ESCITALOPRAM OX10 MG PO (09:09)
[2018-05-15] MEDS ORDERED: LYRICA50 MG PO ×2 (09:10→12:06)
[2018-05-15] MEDS ORDERED: ULTRAM50 M1 PO ×2 (09:10→12:06)
--- NOTE | 2018-05-15 11:00 | NUR ---
DR SHEPPARD WAS CALLED TWICE TO FINISH UP MED REC.
--- NOTE | 2018-05-15 11:55 | NUR ---
DR SHEPPARD CALLED AGAIN ON MED REC.
[2018-05-15] MEDS ORDERED: BENTYL10 MG PO (12:04)
[2018-05-15] MEDS ORDERED: ELIQUIS2.5 MG PO (12:05)
[2018-05-15] MEDS ORDERED: DIGOXIN0.125 MG PO (12:05)
[2018-05-15] MEDS ORDERED: ZETIA10 MG PO (12:05)
[2018-05-15] MEDS ORDERED: LOPRESSOR50 M1 PO (12:06)
[2018-05-15] MEDS ORDERED: ABILIFY5 MG PO (12:07)
[2018-05-15] MEDS ORDERED: OMEPRAZOLE20 M2 PO (12:07)
[2018-05-15] MEDS ORDERED: ATIVAN0.5 MG PO (12:07)
[2018-05-15] MEDS ORDERED: LEXAPRO20 MG PO (12:07)
[2018-05-15] MEDS ORDERED: FISH OIL1000 MG PO (12:08)
--- NOTE | 2018-05-15 12:17 | NUR ---
PT SITTING UP IN BED WATCHING TV; AWAITS D/C;
[2018-05-15] MEDS ORDERED: VENTOLIN HFA IN (12:29)
--- NOTE | 2018-05-15 12:39 | NUR ---
D/C INSTRUCTIONS GIVEN TO PT; HOTEL ASSOCIATE EDUCATE PT OF UPPER GI APPT ON 05/16 @0915, NPO AT MIDNIGHT; PT VERBALIZE UNDERSTANDING; IV REMOVE, CATH INTACT; PT NOW WAITING FOR HER RIDE; WILL CALL WHEN RIDE GETS HERE.
--- NOTE | 2018-05-15 12:51 | NUR ---
Discharge instructions given. Patient verbalizes understanding of same. Discharged in stable condition via Wheelchair to Home with family. All belongings sent with pt.
== END 2018-05-15 12:30 | disposition home or self-care (01) ==
LOC: ED 13:35 → ED-I 15:10 → ED 15:27 → MS2 15:28
PROVIDERS: Emergency Medicine; ADMIT Internal Medicine Geriatric Medicine; ATTEND Internal Medicine Geriatric Medicine
DX: R07.9 Chest pain, unspecified (principal); I10 Essential (primary) hypertension; I25.10 Atherosclerotic heart disease of native coronary artery without angina pectoris; F41.1 Generalized anxiety disorder; I48.0 Paroxysmal atrial fibrillation; F20.9 Schizophrenia, unspecified; G47.33 Obstructive sleep apnea (adult) (pediatric); M79.7 Fibromyalgia; K44.9 Diaphragmatic hernia without obstruction or gangrene; F31.9 Bipolar disorder, unspecified; K27.9 Peptic ulcer, site unspecified, unspecified as acute or chronic, without hemorrhage or perforation; K21.9 Gastro-esophageal reflux disease without esophagitis; E66.9 Obesity, unspecified; Z68.37 Body mass index [BMI] 37.0-37.9, adult
CPT/HCPCS: G0378

== ENCOUNTER 2018-07-12 15:19 | Emergency (ER) | payer MEDICARE ==
[~2018-07-12] VITALS: Ht 160 cm; Wt 97.0 kg
[~2018-07-12 15:19] MED LIST changes: +LEXAPRO20 MG PO; +VENTOLIN HFA IN
[2018-07-12] MEDS ORDERED: BUPROPION HCL300 MG PO (16:06)
[2018-07-12] MEDS ORDERED: BUPROPION HCL150 M1 PO (16:08)
[2018-07-12] MEDS ORDERED: LAMICTAL XR50 MG PO (16:13)
[2018-07-12] MEDS ORDERED: LYRICA75 MG PO (16:17)
[2018-07-12 16:18] LABS: HEMATOCRIT 40.7 % (37.0-47.0); HEMOGLOBIN 12.8 g/dl (12.0-16.0); IMMATURE GRANULOCYTES 0.5 % (0.0-5.0); MEAN CELL VOLUME 87.9 fL CALC (80.0-100.0); MEAN CORPUSCULAR HGB 27.6 pG CALC (26.0-32.0); MEAN CORPUSCULAR HGB CONC 31.4 g/L CALC (32.0-36.0); NEUT# 5.47 thou/uL (2.00-7.15); RED BLOOD COUNT 4.63 mill/uL (4.20-5.60); RED CELL DISTRI WIDTH 14.1 % (11.5-15.5)
[2018-07-12] MEDS ORDERED: XYZAL5 MG PO (16:18)
[2018-07-12] MEDS ORDERED: DYMISTA1 SPR (16:19)
[2018-07-12] MEDS ORDERED: ELIQUIS5 MG PO (16:20)
[2018-07-12] MEDS ORDERED: STOOL SOFTE1 PO (16:23)
[2018-07-12] MEDS ORDERED: VENTOLIN HFA IN (16:23)
[2018-07-12 16:43] LABS: ALKALINE PHOSPHATASE 127 u/l (38-126); ANION GAP 12 (6-22 (CALC)); BILIRUBIN, TOTAL 0.3 mg/dL (0.0-1.4); BUN 13 mg/dL (7-17); BUN/CREATININE RATIO 16 (12-20 (CALC)); CARBON DIOXIDE 25 mmol/l (22-30); CHLORIDE 107 mmol/l (95-108); CREATININE 0.8 mg/dL (0.5-1.0); GFR > 60 ML/MIN (>=60 (CALC)); GFR FOR AFR.AMER. > 60 ML/MIN (>=60 (CALC)); POTASSIUM 3.9 mmol/l (3.5-5.1); SGOT/AST 19 u/l (14-36); SODIUM 141 mmol/l (137-146)
[2018-07-12 16:54] LABS: ALBUMIN 4.4 g/dL (3.2-5.0); TOTAL PROTEIN 7.4 g/dL (6.3-8.2)
[2018-07-12 18:15] VITALS: BP 146/61
== END 2018-07-12 18:22 | disposition home or self-care (01) ==
LOC: ED 15:19
PROVIDERS: Emergency Medicine
DX: R07.89 Other chest pain (principal); I48.91 Unspecified atrial fibrillation; I10 Essential (primary) hypertension; I25.10 Atherosclerotic heart disease of native coronary artery without angina pectoris

== ENCOUNTER 2018-11-21 10:14 | Day surgery (SDC) | payer MEDICARE ==
[~2018-11-21 10:14] MED LIST changes: +BUPROPION HCL150 M1 PO; +BUPROPION HCL300 MG PO; +BUPROPN HCL300 MG PO; +DYMISTA1 SPR; +EFFEXOR XR37.5 MG PO; +ELIQUIS5 MG PO; +FLECAINIDE50 MG PO; +LAMICTAL XR50 MG PO; +LAMICTAL100 MG PO; +LORATADINE10 M2 PO; +LYRICA75 MG PO; +MULTIVITAMIN AD1 TA1 PO; +SINGULAIR10 MG PO; +SPIRONOLACTONE25 MG PO; +STOOL SOFTE1 PO; +VENTOLIN H108 MCG/AC; +WELLBUTRIN SR150 MG PO; +XYZAL5 MG PO
[2018-11-21 11:54] VITALS: BP 99/55
== END 2018-11-21 12:17 | disposition home or self-care (01) ==
LOC: ENDO 10:14 → ORM 11:00 → ENDO 12:17
PROVIDERS: ATTEND Surgery
PROC: 0DJ08ZZ Inspection of Upper Intestinal Tract, Via Natural or Artificial Opening Endoscopic (ICD-10-PCS; principal; 2018-11-21)
DX: K44.9 Diaphragmatic hernia without obstruction or gangrene (principal); I10 Essential (primary) hypertension; I48.91 Unspecified atrial fibrillation; I25.10 Atherosclerotic heart disease of native coronary artery without angina pectoris

== ENCOUNTER 2019-10-15 09:10 | Inpatient (IN) | payer MEDICARE ==
[~2019-10-15] VITALS: Ht 160 cm; Wt 90.0 kg
--- NOTE | 2019-10-15 09:35 | NUR ---
PT TO ROOM WITH WITH SOB
--- NOTE | 2019-10-15 10:40 | NUR ---
INITTIATED IV MEDS AND FLUIDS. PO FLUIDS GIVEN. O2 @2LPM VIA NC , O2 SAT 96%. PT IN NO DISTRESS.
[2019-10-15 11:05] LABS: HEMOGLOBIN 10.9 g/dl (12.0-16.0); IMMATURE GRANULOCYTES 0.6 % (0.0-5.0); MEAN CORPUSCULAR HGB 29.1 pG CALC (26.0-32.0); NEUT# 8.32 thou/uL (2.00-7.15); RED BLOOD COUNT 3.75 mill/uL (4.20-5.60); RED CELL DISTRI WIDTH 13.2 % (11.5-15.5)
[2019-10-15 11:29] LABS: ALBUMIN 3.3 g/dL (3.2-5.0); ALKALINE PHOSPHATASE 121 u/l (38-126); BILIRUBIN, TOTAL 0.7 mg/dL (0.0-1.4); BUN 15 mg/dL (7-17); BUN/CREATININE RATIO 18 (12-20 (CALC)); CARBON DIOXIDE 31 mmol/l (22-30); CHLORIDE 100 mmol/l (95-108); CREATININE 0.8 mg/dL (0.5-1.0); GFR > 60 ML/MIN (>=60 (CALC)); GFR FOR AFR.AMER. > 60 ML/MIN (>=60 (CALC)); SGOT/AST 41 u/l (14-36); SODIUM 137 mmol/l (137-146); TOTAL PROTEIN 6.8 g/dL (6.3-8.2)
[2019-10-15 11:39] LABS: ANION GAP 9 (6-22 (CALC)); POTASSIUM 2.9 mmol/l (3.5-5.1)
[2019-10-15 11:40] LABS: C-REACTIVE PROTEIN 21.6 mg/dL (0-0.9)
--- NOTE | 2019-10-15 11:40 | NUR ---
PT RESTING WITH O2 ON ORDERED. BECOMES TACHYPNEIC AND SOB WITH MINIMAL EXERTION
--- NOTE | 2019-10-15 12:00 | NUR ---
INITIATED IV MAGNESIUM ORDERED AND PO K GIVEN. PT UPDATED ON LABS AND POC. CONTINUES ON O2@3LPM VIA NC. PT IN NO DISTRESS AT THIS TIME
[2019-10-15 12:15] LABS: URINE BLOOD DIPSTICK TRACE-INTACT (NEGATIVE); URINE COLOR YELLOW; URINE GLUCOSE - DIPSTICK NEGATIVE (NEGATIVE); URINE KETONE 40 mg/dL (NEGATIVE); URINE NITRITE - DIPSTICK NEGATIVE (Negative); URINE PH 6.5 (4.5-8.0); URINE PROTEIN - DIPSTICK 30 mg/dL (NEG-TRACE)
[2019-10-15 12:16] LABS: URINE BACTERIA MODERATE hpf; URINE BILIRUBIN - DIPSTICK SMALL (NEGATIVE); URINE EPITHELIAL CELLS MANY EPI/hpf (0-FEW); URINE LEUK ESTERASE LARGE (NEGATIVE); URINE RBC 0-2 RBC/hpf (0-5); URINE WBC 20-50 WBC/hpf (0-5)
[2019-10-15] MEDS ORDERED: METOPROL TAR25 MG PO (12:56)
--- NOTE | 2019-10-15 13:45 | NUR ---
REPORT CALLED TO CHELLY GOFF MS
[2019-10-15 14:00] VITALS: BP 161/75
--- NOTE | 2019-10-15 14:00 | NUR ---
PT TRANSPORTED TO [facility] VIA STRETCHER ON O2@3LPM ANC WITH MASK IN PLACE.
--- NOTE | 2019-10-15 14:00 | NUR ---
PT ARRIVED TO [facility] ROOM 291 VIA STRETCHER IN STABEL CONDITION ACCOMPAINED BY ZAY SOSA. PT TRANSFERED ETO BED FROM STRETCHER WITH LITTLE DIFFICULTY, FALL RISK BAND APPLIED. INTRODUCED SELF TO TP AND DISCUSSED POC. ASSESSMENT AND VITALS COMPLETED AT THIS TIME. RESPRIATIONS ARE EVEN AND UNLABORED WITH NO SIGNS OF DISTRESS ON 3L NC. LUNG SOUNDS ARE DIMINISHED, PT REPORTS SOB ON EXCAERBATION. HEART RHYTHM IS NORMAL WITH TELE IN PLACE. BOWEL SOUNDS ARE HYPOACTIVE, LAST REPORTED BM 10/11/19, REINA NOTIFIED OF LAST BM . RADIAL AND PEDAL PULSES ARE STRONG WITH NORMAL CAPILLARY REFILL. #20G IN LAC RUNNING WITH NS AT 75ML ORDERED, SITE APPEARS HEALTHY AND PATENT. PT COMPLAINS OF 8/ HEADACHE, TYELNOL TO BE ADMINISTERED. PT INFORMS WRITTER OF ALLERGIES, ALERGY BAND APPLIED.PT TELLS WRITTER THAT SHE PRESENTED TO [facility] DUE TO INCREASING WEAKNESS. PT TESTED POSITIVE FOR COVID 19 ON 10/05/2019 WHEN SWABBED BY PCP.ISOLATION PRECAUTIONS EN FORCED. PT ORIENTED TO ROOM AND CALL LIGHT SYSTEM . ALL SAFTEY PRECAUTIONS ARE IN PLACE WITH CALL LIGHT IN REACH. WILL CONTINUE TO MONITOR
[2019-10-15 15:00] VITALS: BP 153/63
--- NOTE | 2019-10-15 16:23 | NUR ---
REASSESSMENT OF PAIN AT THIS TIME RESULTING IN 05/31. RESPIRATAIONS ARE EVEN AND UNLABORED WITH NO SIGNS OF DISTRESS. ALL SAFETY PRECAUTIONS ARE OIN PLCAE WITH CALL LIGHT IN REACH. WILL CONTINUE TO MONITOR
[2019-10-15] MEDS ORDERED: REPATHA140 MG/ML IM (17:09)
[2019-10-15 19:37] VITALS: BP 100/46
--- NOTE | 2019-10-15 21:00 | NUR ---
PATIENT ALERT ORINETED ABLE TO MAKE NEEDS KNONW, WITH ONGOING IV NS @ 75CC/HR INFUSING WELL ON LAC REMAINS ON TELE SR 90, C/O OF HEADACHE PS 10/31 WILL MEDICATE LBM 10/10, HOOKED TO 02 @ 3LPM VIA NC NOTED TO HAVE DIMINISHED BREATH SOUNDS ON BOTH LUNG MUÑOZ,EXERTIONAL DYSPNEA NOTED, CALL LIGHT AT REACH.
[2019-10-15 21:30] VITALS: BP 174/70
[2019-10-15] MEDS ORDERED: LYRICA50 MG PO (21:51)
[2019-10-15 23:20] VITALS: BP 121/55
--- NOTE | 2019-10-15 23:24 | NUR ---
PATIENT CALLED AND STATED THAT "FEELS LIKE SHE WILL PASSED OUT" V/S TAKEN POX ON 3 LPM 86-87 PERCENT, PATIENT ALSO STATED THAT SHE CANT LAY ON HER STOMACH, MILITARY COOK AND NURSE ASSISTED TO LAY ON SIDE, SEMI FOWLERS O2 INCREASED TO 4LPM VIA NC AND ENCOURAGED TO COUGH, O2 SAT WENT UP TO 92 % ON 4LPM, PATIENT STATED FEELS MUCH BETTER, WILL CONTINUE TO MONITOR.
[2019-10-16 04:17] VITALS: BP 155/58
[2019-10-16 04:58] LABS: HEMATOCRIT 31.9 % (37.0-47.0); HEMOGLOBIN 10.4 g/dl (12.0-16.0); IMMATURE GRANULOCYTES 0.6 % (0.0-5.0); MEAN CELL VOLUME 88.9 fL CALC (80.0-100.0); MEAN CORPUSCULAR HGB CONC 32.6 g/dL CAL (32.0-36.0); NEUT# 7.69 thou/uL (2.00-7.15); RED BLOOD COUNT 3.59 mill/uL (4.20-5.60); RED CELL DISTRI WIDTH 13.3 % (11.5-15.5)
[2019-10-16 05:19] LABS: ALBUMIN 2.8 g/dL (3.2-5.0); ALKALINE PHOSPHATASE 121 u/l (38-126); ANION GAP 11 (6-22 (CALC)); BILIRUBIN, TOTAL 0.4 mg/dL (0.0-1.4); BUN 14 mg/dL (7-17); BUN/CREATININE RATIO 20 (12-20 (CALC)); CARBON DIOXIDE 25 mmol/l (22-30); CHLORIDE 106 mmol/l (95-108); CREATININE 0.7 mg/dL (0.5-1.0); GFR > 60 ML/MIN (>=60 (CALC)); GFR FOR AFR.AMER. > 60 ML/MIN (>=60 (CALC)); SGOT/AST 31 u/l (14-36); SODIUM 138 mmol/l (137-146); TOTAL PROTEIN 5.6 g/dL (6.3-8.2)
[2019-10-16 05:34] LABS: C-REACTIVE PROTEIN 16.4 mg/dL (0-0.9)
--- NOTE | 2019-10-16 07:15 | NUR ---
REPORT RECEIVED FROM ZAY LOO.
--- NOTE | 2019-10-16 08:10 | NUR ---
PT RESTING IN SEMI FOWLERS POSITION,A&O X3;VS OBTAINED AND ASSESSMENT COMPLETED;PT DENIES ANY CURRENT PAIN OR DISCOMFORTS,PAIN SCALE AND REPORTING EDUCATED;RESPIRATIONS EVEN AND UNLABORED,SHALLOW ON O2 @ 4L VIA NC;ABDOMEN DISTENDED/SOFT ON PALPATION,PT REPORTED HAVING A BM TODAY;STRONG PEDAL PULSES;SKIN INTACT;TELE MONITORING IN PLACE;#20G TO LAC INFUSING NS @ 75ML/HR,SITE APPEARS HEALTHY;PT DENIES ANY ADDITIONAL NEEDS AT THIS TIME AND IS ENCOURAGED TO CALL FOR ASSISTANCE IF NEEDED;CALL LIGHT IN REACH;WILL CONTINUE TO MONITOR
[2019-10-16 08:11] VITALS: BP 149/62
--- NOTE | 2019-10-16 09:55 | NUR ---
HOME MEDICATIONS SENT TO PHARMACY FOR VERIFICATION. HOME METOPROLOL PLACED IN PHARMACY SECURED BAG IN PLACED IN PT CLOSET DUE TO COVID 19 DX.
[2019-10-16 10:59] VITALS: BP 112/52
--- NOTE | 2019-10-16 12:10 | NUR ---
PT RESTING IN SEMI FOWLERS POSITION;RESPIRATIONS EVEN AND UNLABORED ON O2 @ 4L VIA NC;PT DENIES ANY CURRENT PAIN OR DISCOMFORTS;TELE MONITORING IN PLACE;IV SITE PATENT AND ABX STARTED AT THIS TIME;PT DENIES ANY ADDITIONAL NEEDS;ENCOURAGED TO CALL FOR ASSISTANCE IF NEEDED;CALL LIGHT IN REACH;WILL CONTINUE TO MONITOR
[2019-10-16 15:09] VITALS: BP 111/49
--- NOTE | 2019-10-16 16:00 | NUR ---
PT RESTING IN SEMI FOWLERS POSITION;RESPIRATIONS EVEN AND UNLABORED ON O2 @ 4L VIA NC;PT DENIES ANY CURRENT PAIN OR NEEDS;TELE MONTORING IN PLACE;IV SITE PATENT AND INFUSING NS WITH EASE PER ORDER;ALL SAFETY PRECAUTIONS IN PLACE WITH CALL LIGHT IN REACH;WILL CONTINUE TO MONITOR
[2019-10-16 19:17] VITALS: BP 157/55
--- NOTE | 2019-10-16 20:28 | NUR ---
PT RESTING IN BED, NO SIGNS OF DISTRESS NOTED, RESP EVEN AND UNLABORED. PT ALERT AND ORIENTED X3, DISCUSSED POC, PT VOICES NO NEEDS OR COMPLAINTS AT THIS TIME. ASSESSMENT COMPLETED, CALL LIGHT IN REACH,CONTINUE TO MONITOR.
[2019-10-16 23:40] VITALS: BP 159/64
--- NOTE | 2019-10-17 | NUR ---
PT RESTING IN BED, VOICES NO NEEDS OR COMPLAINTS AT THIS TIME, CALL LIGHT IN REACH,CONTINUE TO MONITOR.
[2019-10-17 04:00] VITALS: BP 153/66
--- NOTE | 2019-10-17 04:15 | NUR ---
INFORMED BY DOG SHOW JUDGE PT C/O CP, TROPONIN OBTAINED, VSS, RT CALLED TO BEDSIDE FOR EKG. PT C/O PAIN 09/30, NO SIGNS OF DISTRESS NOTED, RESP EVEN AND UNLABORED. CALL LIGHT IN REACH,CONTINUE TO MONITOR.
--- NOTE | 2019-10-17 04:40 | NUR ---
PT RESTING IN BED, MEDICATED PER APR FOR PAIN, MD NOTIFIED, NO NEW ORDER RECEIVED. CALL LIGHT IN REACH,CONTINUE TO MONITOR.
--- NOTE | 2019-10-17 06:00 | NUR ---
PT RESTING IN BED, STATES HER PAIN IS "MUCH BETTER", VOICES NO NEEDS OR COMPLAINTS AT THIS TIME, CALL LIGHT IN REACH,CONTINUE TO MONITOR.
--- NOTE | 2019-10-17 07:10 | NUR ---
REPORT RECEIVED FROM CHELLY MADISON.
--- NOTE | 2019-10-17 09:03 | NUR ---
AT BEDSIDE DISCUSSING POC.
--- NOTE | 2019-10-17 09:10 | NUR ---
PT RESTING IN SEMI FOWLERS POSITION,A&O X3;VS OBTAINED AND ASSESSMENT COMPLETED;PT DENIES ANY CURRENT PAIN OR DISCOMFORTS AT THIS TIME,PAIN SCALE AND REPORING EDUCATED;PT DOES REPORT THAT SHE GETS CHEST PRESSURE/PAIN AT TIMES AFTER COUGHING;RESPIRATIONS SHALLOW ON O2 @ 4L VIA NC, PRODUCTIVE COUGH NOTED AT TIMES THICK/YELLOW; ABDOMEN DISTENDED/SOFT ON PALPATION AND ACTIVE IN ALL4 QUADRANTS;STRONG PEDAL PULSES;SKIN INTACT;TELE MONITORING IN PLACE;#20G TO LAC INFUSING NS @ 75ML/HR PER ORDER,SITE APPEARS HEALTHY AND ABX STARTED AT THIS TIME;PT DENIES ANY ADDITIONAL NEEDS AND IS ENCOURAGED TO CALL FOR ASSISTANCE IF NEEDED;FALL PRECAUTIONS IN PLACE WITH CALL LIGHT IN REACH;WILL CONTINUE TO MONITOR
[2019-10-17 09:11] VITALS: BP 137/47
--- NOTE | 2019-10-17 10:12 | NUR ---
PT TRANSPORTED TO [facility] IN STABLE CONDITION VIA WHEELCHAIR ACCOMPANIED BY DERICK SANTIZO
--- NOTE | 2019-10-17 10:25 | NUR ---
PT RETURNED TO MED/SURG ROOM 290 IN STABLE CONDITION VIA WHEELCHAIR ACCOMPANIED BY DERICK VIDAL.
[2019-10-17 11:37] VITALS: BP 141/62
--- NOTE | 2019-10-17 12:00 | NUR ---
PT RESTING IN SEMI FOWLERS POSITION;RESPIRATIONS REMAIN EVEN AND UNLABORED ON O2 @ 4L VIA NC;PT DENIES ANY CURRENT PAIN OR DISCOMFORTS;TELE MONITORING IN PLACE;IV SITE TO LAC REMAINS PATENT INFUSING NS @ KVO PER ORDER;PT ASSISTED TO BEDSIDE COMMODE AND VOID 200CC OF CLEAR/YELLOW URINE,RE-POSITIONED BACK INTO BED FOR COMFORT;PT DENIES ANY ADDITIONAL NEEDS AND IS ENCOURAGED TO CALL FOR ASSISTANCE IF NEEDED;CALL LIGHT IN REACH;WILL CONTINUE TO MONITOR
--- NOTE | 2019-10-17 12:40 | NUR ---
PT REPORTS NAUSEA AND REQUESTS PRN ANTIEMETIC, PT MEDICATED WITH PRN ZOFRAN 4MG IVP AT THIS TIME;WILL CONTINUE TO MONITOR FOR EFFECTIVENESS
--- NOTE | 2019-10-17 15:01 | NUR ---
NASAL SWAB OBTAINED TO RIGHT NARE AT THIS TIME FOR REPEAT PCR,PT TOLERATED WELL.
[2019-10-17 15:28] VITALS: BP 112/47
--- NOTE | 2019-10-17 15:45 | NUR ---
PT FAMILY BROUGHT IN HOME MEDICATION TO BE VERIFIED BY PHARMACY FOR HOME USE,MEDICATIONS SENT TO PHARMACY.
--- NOTE | 2019-10-17 16:10 | NUR ---
PT APPEARS TO BE SLEEPING IN SEMI FOWLERS POSITION;RESPIRATIONS EVEN AND UNLABORED ON O2 @ 4L VIA NC;NO S/S OF DISTRESS NOTED;TELE MONITORING IN PLACE;IV SITE PATENT INFUSING NS @ KVO PER ORDER;ALL SAFETY PRECAUTIONS REMAIN IN PLACE WITH BED IN THE LOWEST POSITION AND CALL LIGHT IN REACH;WILL CONTINUE TO MONITOR
[2019-10-17 18:53] VITALS: BP 124/49
--- NOTE | 2019-10-17 19:06 | NUR ---
REPORT FROM CHING SPAULDING. PT NOTED RESTING IN BED. WAKES EASILY. NO APPARENT DISTRESS NOTED. PT DENIES ANY PAIN OR DISCOMFORT AT THIS TIME. RESPIRATIONS EVEN AND UNLABORED. O2 @ 4L/M VIA NC. LUMBER HACKER IN PLACE. IV SITE APPEARS HEALTHY WITH KVO IVF INFUSING. DISCUSSED POC. PT VERBALIZED UNDERSTANDING. NO CURRENT WANTS OR NEEDS NOTED. CALL LIGHT WITHIN REACH. WILL CONTINUE TO MONITOR.
--- NOTE | 2019-10-17 21:36 | NUR ---
PT MEDICATED ORDERED. NO APPARENT DISTRESS NOTED. PT C/O GERD AT THIS TIME STATES SHE TAKES OMEPRAZOLE AT HOME. JAPANESE PROFESSOR WILL NOTIFY MAINSPRING FORMER PHYSICIAN TO OBTAIN ORDERS. BSC EMPTIED OF 350 CLEAR YELLOW URINE. PT DENIES ANY OTHER CURRENT WANTS OR NEEDS. CALL LIGHT WITHIN REACH. WILL CONTINUE TO MONITOR.
--- NOTE | 2019-10-17 22:43 | NUR ---
ORDERS RECEIVED FROM SHELTER CASE MANAGER PHYSICIAN FOR PROTONIX 40MG PO DAILY, START NOW. WILL MEDICATE PT ONCE MEDICATION PROFILED BY PHARMACY.
[2019-10-18] VITALS (7 sets, daily range): BP systolic 99–184; BP diastolic 46–71
--- NOTE | 2019-10-18 01:04 | NUR ---
RN ON SHIFT TO ADMINISTER IV APRESOLINE FOR BP 182/72 HR 82.
--- NOTE | 2019-10-18 02:18 | NUR ---
BP RECHECK 163/70 HR 73. NO APPARENT DISTRESS NOTED. PT DENIES ANY PAIN AT THIS TIME. WILL CONTINUE TO MONITOR.
--- NOTE | 2019-10-18 05:06 | NUR ---
PT C/O HEADACHE. MEDICATED WITH PRN APAP AT THIS TIME. VSS. BSC EMPTIED OF 1000ML CLEAR YELLOW OUTPUT. NO APPARENT DISTRESS NOTED. CALL LIGHT WITHIN REACH. WILL CONTINUE TO MONITOR.
[2019-10-18 05:30] LABS: HEMOGLOBIN 10.4 g/dl (12.0-16.0); IMMATURE GRANULOCYTES 0.7 % (0.0-5.0); MEAN CELL VOLUME 91.2 fL CALC (80.0-100.0); MEAN CORPUSCULAR HGB 28.7 pG CALC (26.0-32.0); MEAN CORPUSCULAR HGB CONC 31.5 g/dL CAL (32.0-36.0); NEUT# 6.76 thou/uL (2.00-7.15); RED BLOOD COUNT 3.62 mill/uL (4.20-5.60); RED CELL DISTRI WIDTH 13.6 % (11.5-15.5)
[2019-10-18 05:51] LABS: ALBUMIN 2.7 g/dL (3.2-5.0); ALKALINE PHOSPHATASE 100 u/l (38-126); ANION GAP 7 (6-22 (CALC)); BILIRUBIN, TOTAL 0.4 mg/dL (0.0-1.4); BUN 14 mg/dL (7-17); BUN/CREATININE RATIO 20 (12-20 (CALC)); C-REACTIVE PROTEIN 5.2 mg/dL (0-0.9); CARBON DIOXIDE 29 mmol/l (22-30); CHLORIDE 105 mmol/l (95-108); CREATININE 0.7 mg/dL (0.5-1.0); GFR > 60 ML/MIN (>=60 (CALC)); GFR FOR AFR.AMER. > 60 ML/MIN (>=60 (CALC)); POTASSIUM 3.8 mmol/l (3.5-5.1); SGOT/AST 27 u/l (14-36); SODIUM 138 mmol/l (137-146); TOTAL PROTEIN 5.4 g/dL (6.3-8.2)
--- NOTE | 2019-10-18 06:55 | NUR ---
REPORT RECEIVED FROM CHELLY MENA.
--- NOTE | 2019-10-18 08:46 | NUR ---
AT BEDSIDE DISCUSSING POC WITH PT.
--- NOTE | 2019-10-18 08:55 | NUR ---
PT RESTING IN SEMI FOWLERS POSITION,A&O X3;VS OBTAINED AND ASSESSMENT COMPLETED;PT DENIES ANY CURRENT PAIN OR DISCOMFORTS,PAIN SCALE AND REPORTING EDUCATED;RESPIRATIONS EVEN AND UNLABORED ON O2 @ 4L VIA NC;NON-PRODUCTIVE COUGH NOTED AT TIMES;ABDOMEN DISTENDED/SOFT ON PALPATION AND ACTIVE IN ALL 4 QUADRANTS;STRONG PEDAL PULSES;SKIN INTACT;TELE MONITORING IN PLACE;#20G TO LAC INFUSING NS @ KVO PER ORDER,SITE APPEARS HEALTHY AND ABX STARTED AT THIS TIME;PT DENIES ANY ADDITIONAL NEEDS;PT REMAINS IN AIR/CONTACT PRECAUTIONS DUE TO COVID19 DX;PT ENCOURAGED TO CALL FOR ASSISTANCE IF NEEDED;CALL LIGHT IN REACH;WILL CONTINUE TO MONTIOR
--- NOTE | 2019-10-18 11:50 | NUR ---
PT OOB RESTING IN RECLINER;RESPIRATIONS EVEN AND UNLABORED ON O2 @ 4L VIA NC, EXERTIONAL SOB NOTED AT TIMES;PT DENIES ANY CURRENT PAIN OR NEEDS;TELE MONITORING IN PLACE;IV SITE PATENT INFUSING NS PER ORDER;ASSESSMENT REMAINS UNCHANGED AT THIS TIME;ENCOURAGED TO CALL FOR ASSISTANCE IF NEEDED;CALL LIGHT IN REACH;WILL CONTINUE TO MONITOR
--- NOTE | 2019-10-18 15:30 | NUR ---
PT RESTING IN SEMI FOWLERS POSITION;RESPIRATIONS EVEN AND UNLABORED ON O2 @ 4L VIA NC;PT DENIES ANY CURRENT PAIN OR DISCOMFORTS;TELE MONITORING IN PLACE;IV SITE PATENT INFUSING NS WITH EASE PER ORDER;PT DENIES ANY ADDITIONAL NEEDS AT THIS TIME;ASSESSMENT REMAINS UNCHANGED;ENCOURAGED TO CALL FOR ASSISTANCE IF NEEDED;CALL LIGHT IN REACH;WILL CONTINUE TO MONITOR
--- NOTE | 2019-10-18 20:00 | NUR ---
PATIENT ALERT, VEBRAL, ABLE TO MAKE NEEDS KNOWN. ABLE TO TOLERATE MEDS WELL WHOLE. CONT ON IV ABT THERAPY RELATED TO COVID PNEUMONIA WITH NO SIDE EFFECTS NOTED--AFEBRILE. AIRBORNE CONTACT PRECAUTIONS REMAIN IN PLACE WELL. PIV SITE PATENT TO LEFT AC--SITE UNREMARKABLE. NS INFUSING @ 20ML/HR WITHOUT DIFFICULTY--TOLERATING FLUIDS WELL. CONT OF BOWEL AND BLADDER--OUT OF BED TO C INDEPENDENTLY THIS SHIFT--DOES WELL--STEADY GAIT. DENIES PAIN OR DISCOMFORT. O2 @ 4L/MIN BNC--SOB NOTED WITH EXERTION. LS DIMINSHED THROUGHOUT ALL LOBES. TRACE EDEMA NOTED TO BILATERAL ANKLES--ENCOURAGED TO ELEVATE WHEN POSSIBLE. TELEMETRY IN PLACE--SINUS RHYTHM @ 72. WILL CONT TO MONITOR FOR ANY FURTHER CHANGES.
--- NOTE | 2019-10-19 | NUR ---
PATIENT RESTING SOUNDLY IN BED WITH EYES CLOSED AT THIS TIME. NO APPARENT DISTRESS NOTED. O2 CONTINUES @ 4L/MIN [facility]---NO S/S OF RESP DISTRESS NOTED. TELEMETRY IN PLACE--SINUS RHYTHM @ 68. PIV PATENT TO LEFT AC--SITE UNREMARKABLE--NS INFUSING WITHOUT DIFFICULTY @ 20ML/HR--TOELRATING FLUIDS WELL. WILL CONT TO MONITOR FOR ANY FURTHER CHANGES.
[2019-10-19 00:01] VITALS: BP 161/59
--- NOTE | 2019-10-19 04:00 | NUR ---
PATIENT RESTING SOUNDLY IN BED WITH EYES CLOSED AT THIS TIME. NO APPARENT DISTRESS NOTED. REMAINS ON AIRBORNE CONTACT PRECAUTIONS RELATED TO COVID PNEUMONIA WELL. PIV SITE PATENT--FLUSHES WELL--SITE UNREMARKABLE-NS INFUSING @ 20ML/HR--KVO--WITHOUT DIFFICULTY--TOLERATING FLUIDS WELL. TELEMETRY IN PLACE--SINUS RHYTHM @ 66. O2 @ 4L/MIN [facility]-NO S/S OF RESP DISTRESS NOTED. WILL CONT TO MONITOR FOR ANY FURTHER CHANGES.
[2019-10-19 04:47] VITALS: BP 159/65
[2019-10-19 08:15] VITALS: BP 87/45
--- NOTE | 2019-10-19 08:15 | NUR ---
ASSESSMENT IS COMPELTED; IV SITE IS FREE FROM REDNESS OR EDEMA. HR IS REG,PULSES ARE STRONG X4, ABD IS SOFT WITH ACTIVE BS. BREATH SOUNDS ARE DIMINISHED WITH O2 @ 4 LITERS NC. TELE MONITOR IN PLACE. CONTINUE TO OSBERVE AND MONITOR.
[2019-10-19 11:07] VITALS: BP 110/46
--- NOTE | 2019-10-19 12:45 | NUR ---
PT IS RELAXING IN BED WITH NO DISTRESS NOTED. IV SITE IS FREE FROM REDNESS OR EDEMA.
[2019-10-19 15:00] VITALS: BP 123/52
--- NOTE | 2019-10-19 16:45 | NUR ---
PT CONTINUES TO RELAX WITH NO DISTRESS NOTED. HAS BEEN IN THE CHAIR TODAY. CONTINUE TO OBSERVE AND MONITOR.
[2019-10-19 19:30] VITALS: BP 139/58
--- NOTE | 2019-10-19 21:33 | NUR ---
PT MEDICATED ORDERS PROVIDE, PT'S HOME MEDICATIONS ARE AT BEDSIDE. PT LOCX4 AND AMBULATORY. ASSESSMENT COMPLETED AND SMALL BROWN FORMED STOOL EMPTIED FROM BSC. LUNG SOUNDS ARE CLEAR AT THIS TIME. PT PROVIDED SNACK, DENIES ANY OTHER NEEDS. ENCOURAGED TO CALL NEEDS ARISE.
[2019-10-20 00:06] VITALS: BP 161/63
--- NOTE | 2019-10-20 00:10 | NUR ---
PT SLEEPING, AWOKE TO ENTERING ROOM. SEISMOGRAPH CHIEF IN W/PT OBTAINING V/S. DENIES ANY NEEDS AT THIS TIME.
--- NOTE | 2019-10-20 03:31 | NUR ---
PT MEDICATED FOR HEADACHE AND ICEWATER REPLENISHED, DENIED ANY OTHER NEEDS. OXYGEN TITRATED DOWN TO 3L AND OXYGEN LEVELS ASSESSED IMMEDIATELY AND @5 NINUTE INTERVALS X2. PT HOLDING 93-97% ON 3L. WILL CONTINUE TO MONITOR FOR NOW.
[2019-10-20 03:41] VITALS: BP 149/70
--- NOTE | 2019-10-20 05:45 | NUR ---
02 SAT'S 94% ON 3L.
[2019-10-20 08:20] VITALS: BP 106/44
--- NOTE | 2019-10-20 08:20 | NUR ---
ASSESSMENT IS COMPLETED: IV SITE IS FREE FROM REDNESS OR EDEMA. HR IS REG,PULSES ARE STRONG X4, ABD IS SOFT WITH ACTIVE BS. BREATH SOUNDS ARE CLEAR, BILATERALLY. O2 @ 3LITERS WITH NC. TELE MONITOR IN PLACE. CONTINUE TO OBSERVE AND MONITOR.
--- NOTE | 2019-10-20 11:08 | NUR ---
PT C/O BEING "DIZZY, AND LIGHT HEADED FELT LIKE HER HEART WAS RACING". WHEN SHE WAS CHECKED PULSE WAS READING 75, AND PT EXPLAINED THAT SHE CLIMBED OUT OF THE CHAIR AND BECAME WINDED. AND LIGHT HEADED FEELS BETTER NOW. INFORMED DR ROSS
[2019-10-20 11:36] VITALS: BP 100/46
--- NOTE | 2019-10-20 12:45 | NUR ---
PT IS RELAXING IN BED WITH NO DISTRESS NOTED. IV SITE IS FREE FROM REDNESS OR EDEMA.
[2019-10-20 16:28] VITALS: BP 132/57
[2019-10-20 20:03] VITALS: BP 114/55
--- NOTE | 2019-10-20 20:14 | NUR ---
PT MEDICATED ORDERS PROVIDE AND PT ASSISTED WALKING INTO RESTROOM AND BACK TO BED. 02 WAS SET AT 3 UPON MY ENTERING THE ROOM, TITRATED PT DOWN TO 1L. SO FAR SHE IS HOLDING BETWEEN 93-97% ON 1L. WILL CONTINUE TO MONITOR. PT DENIES SOB. LUNG SOUNDS ARE CLEAR THROUGHOUT, MILD CRACKLES HEARD IN BLL.
--- NOTE | 2019-10-20 21:43 | NUR ---
PT OXYGEN SAT LEVENS HOLDING @94-95% ON 1L 02NC. INCENTIVE SPIROMETER PROVIDED PER OUR EARLIER DISCUSSION AND PT REQUEST. PT IS AMBULATING TO RESTROOM AND BACK WITHOUT DISTRESS. PT STATES, "I AM READY TO GO HOME TOMORROW." DISCUSSED DC AND POC WITH PT.
--- NOTE | 2019-10-20 22:02 | NUR ---
PT MEDICATED FOR PAIN 4/10 ON PAIN SCALE
[2019-10-21 00:30] VITALS: BP 153/66
[2019-10-21 04:33] VITALS: BP 143/60
--- NOTE | 2019-10-21 04:36 | NUR ---
V/S ASSESSED AND SNACK PROVIDED. PT REPORTS THAT SHE IS AMBULATING TO RESTROOM AND TAKING HER OXYGEN OFF AND BECOMES SLIGHTLY SOB. PT DENIES SOB WHILE IN BED W/OXYGEN ON. PT IS 94% ON 1LNC STABLE. EXTENSION IS ADDED TO OXYGEN DISCUSSED THIS WITH PT, VERBALIZED UNDERSTANDING. I EXPLAINED TO THE PT THAT THEY MAY WANT HER TO TAKE A WALK TEST THIS AM, EXPRESSED UNDERSTANDING. ENCOURAGED PT TO CALL WITH ANY OTHER NEEDS, CALL LIGHT AT SIDE.
[2019-10-21 05:59] LABS: HEMATOCRIT 32.6 % (37.0-47.0); HEMOGLOBIN 10.1 g/dl (12.0-16.0); IMMATURE GRANULOCYTES 0.6 % (0.0-5.0); MEAN CELL VOLUME 92.6 fL CALC (80.0-100.0); MEAN CORPUSCULAR HGB 28.7 pG CALC (26.0-32.0); NEUT# 6.18 thou/uL (2.00-7.15); RED BLOOD COUNT 3.52 mill/uL (4.20-5.60)
[2019-10-21 06:28] LABS: ALBUMIN 2.5 g/dL (3.2-5.0); ALKALINE PHOSPHATASE 89 u/l (38-126); ANION GAP 5 (6-22 (CALC)); BUN 20 mg/dL (7-17); BUN/CREATININE RATIO 26 (12-20 (CALC)); C-REACTIVE PROTEIN 1.9 mg/dL (0-0.9); CARBON DIOXIDE 34 mmol/l (22-30); CHLORIDE 102 mmol/l (95-108); CREATININE 0.8 mg/dL (0.5-1.0); GFR > 60 ML/MIN (>=60 (CALC)); GFR FOR AFR.AMER. > 60 ML/MIN (>=60 (CALC)); POTASSIUM 3.9 mmol/l (3.5-5.1); SGOT/AST 23 u/l (14-36); SODIUM 138 mmol/l (137-146)
[2019-10-21 06:33] LABS: BILIRUBIN, TOTAL 0.2 mg/dL (0.0-1.4)
[2019-10-21 08:10] VITALS: BP 118/60
--- NOTE | 2019-10-21 08:10 | NUR ---
ASSESSMENT IS COMPLETED: IV SITE IS FREE FROM REDNESS OR EDEMA. HR IS REG,PULSES ARE STRONG X4, ABD IS SOFT WITH ACTIVE BS. BREATH SOUNDS ARE CLEAR AND FAINT WHEEZING IN BASES. O2 @ 1 LITER WITH NC. PT USES A CPAP AT HOME. TELE MONITOR IN PLACE. CONTINEU TO OSEBRVE AND MONITOR.
--- NOTE | 2019-10-21 09:30 | NUR ---
PT IV SITE STARTED TO LEAK, ATTEMPTED TO RESTART X2 UNSUCCESSFUL. INQUIRED ABOUT ANOTHER NURSE TO ATTEMPT. UNSUCCESSFUL X2, WILL INFORM THE
[2019-10-21 10:30] VITALS: BP 95/44
--- NOTE | 2019-10-21 10:30 | NUR ---
INFORMED DR ROSS RE: IV SITE UNSUCCESSFUL ATTEMPTS X4, WILL CHANGE TO PO AND DISCHARGE PT HOME.
[2019-10-21] MEDS ORDERED: PANTOPRAZOLE SO40 M1 PO (11:52)
--- NOTE | 2019-10-21 12:00 | NUR ---
PT IS RELAXING IN BED C/O "WHEN I TAKE A DEEP BREATH IN IT HURTS, ONLY WITH DEEP BREATH MIDSTERNAL" INFORMED JULIÁN BUBBA, WILL WATCH PT AND CHECK ON HER GERD. CONTINUE TO OSBERVE AND MONITOR. PT FEELS LIKE IF SHE USES HER CPAP AT HOME AND THEN WILL FEEL BETTER.
--- NOTE | 2019-10-21 13:00 | NUR ---
RECHECKED ON PT.ONLY SMALL AMOUNT OF PAIN IN MIDSTERNAL WHEN DEEP BREATH IS TAKEN. DISCHARGE INSTRUCITONS GIVEN AND VERBALIZED UNDERSTANDING. ALL MEDICATIONS AND BELONGINGS SENT WITH PT. INSTRUCTED PT ABOUT HER BREATHING IF IT IS WORSE TO RETURN AND VERBALIZED UNDERSTANIDNG.
--- NOTE | 2019-10-21 13:20 | NUR ---
Discharge instructions given. Patient verbalizes understanding of same. Discharged in stable condition via Wheelchair to Home with family. All belongings sent with pt.
--- NOTE | 2019-10-23 11:57 | NUR ---
Pneumonia post discharge follow up call completed 10/23/19. Pt. states she is still experiencing weakness and dizziness. No fever or chills. SOB with excertion, but recovers quickly. Pt. states she does not have O2 at home, but uses a CPAP machine. Follow up appt. with her PCP is scheduled for tomorrow, . She is taking the Protonix prescribed on discharge. No issues or questions at this ruth Pne
== END 2019-10-21 13:34 | disposition home or self-care (01) | DRG 177 ==
LOC: ED 09:10 → ED-I 09:56 → ED 09:56 → ED-I 11:30 → ED 12:13 → MS2 12:14
PROVIDERS: Family Medicine; Nurse Practitioner; Nurse Practitioner Family; ADMIT Internal Medicine; ATTEND Internal Medicine
PROC: XW033E5 Introduction of Remdesivir Anti-infective into Peripheral Vein, Percutaneous Approach, New Technology Group 5 (ICD-10-PCS; principal; 2019-10-16)
DX: U07.1 COVID-19 (principal); J12.89 Other viral pneumonia; R43.8 Other disturbances of smell and taste; R09.02 Hypoxemia; N30.90 Cystitis, unspecified without hematuria; E87.6 Hypokalemia; I10 Essential (primary) hypertension; E78.5 Hyperlipidemia, unspecified; I48.0 Paroxysmal atrial fibrillation; F31.9 Bipolar disorder, unspecified; F41.9 Anxiety disorder, unspecified; F20.9 Schizophrenia, unspecified; I25.10 Atherosclerotic heart disease of native coronary artery without angina pectoris; F43.10 Post-traumatic stress disorder, unspecified; M79.7 Fibromyalgia; Z87.440 Personal history of urinary (tract) infections; Z79.01 Long term (current) use of anticoagulants
CPT/HCPCS: J3475

== ENCOUNTER 2020-01-21 14:28 | Emergency (ER) | payer MEDICARE ==
[~2020-01-21] VITALS: Ht 160 cm; Wt 93.6 kg
[~2020-01-21 14:28] MED LIST changes: +METOPROL TAR25 MG PO; +PANTOPRAZOLE SO40 M1 PO; +REPATHA140 MG/ML IM
[2020-01-21 15:40] LABS: HEMOGLOBIN 12.2 g/dl (12.0-16.0); IMMATURE GRANULOCYTES 0.1 % (0.0-5.0); MEAN CELL VOLUME 95.2 fL CALC (80.0-100.0); MEAN CORPUSCULAR HGB 30.6 pG CALC (26.0-32.0); MEAN CORPUSCULAR HGB CONC 32.1 g/dL CAL (32.0-36.0); NEUT# 3.54 thou/uL (2.00-7.15); RED BLOOD COUNT 3.99 mill/uL (4.20-5.60); RED CELL DISTRI WIDTH 14.3 % (11.5-15.5)
[2020-01-21 15:50] LABS: ALKALINE PHOSPHATASE 84 u/l (38-126); ANION GAP 12 (6-22 (CALC)); BILIRUBIN, TOTAL 0.4 mg/dL (0.0-1.4); BUN 15 mg/dL (7-17); BUN/CREATININE RATIO 14 (12-20 (CALC)); CARBON DIOXIDE 27 mmol/l (22-30); CHLORIDE 105 mmol/l (95-108); GFR 57 ML/MIN (>=60 (CALC)); GFR FOR AFR.AMER. > 60 ML/MIN (>=60 (CALC)); MAGNESIUM 2.1 mg/dL (1.6-2.3); POTASSIUM 3.7 mmol/l (3.5-5.1); SGOT/AST 26 u/l (14-36); SODIUM 141 mmol/l (137-146); TOTAL PROTEIN 7.4 g/dL (6.3-8.2)
[2020-01-21 15:55] LABS: ALBUMIN 4.2 g/dL (3.2-5.0)
[2020-01-21] MEDS ORDERED: SUMATRIPTAN25 MG PO (16:32)
[2020-01-21] MEDS ORDERED: VALACYCLOVIR500 MG PO (16:32)
[2020-01-21] MEDS ORDERED: LORAZEPAM0.5 MG PO (16:33)
[2020-01-21 16:34] LABS: URINE BILIRUBIN - DIPSTICK NEGATIVE (NEGATIVE); URINE BLOOD DIPSTICK NEGATIVE (NEGATIVE); URINE COLOR YELLOW; URINE GLUCOSE - DIPSTICK NEGATIVE (NEGATIVE); URINE KETONE NEGATIVE (NEGATIVE); URINE LEUK ESTERASE TRACE (NEGATIVE); URINE NITRITE - DIPSTICK NEGATIVE (Negative); URINE PROTEIN - DIPSTICK NEGATIVE (NEG-TRACE); URINE SPECIFIC GRAVITY <=1.005; URINE UROBILINOGEN - DIPSTICK 0.2 E.U./dL (0.2)
[2020-01-21 17:33] VITALS: BP 121/61
== END 2020-01-21 17:48 | disposition home or self-care (01) ==
LOC: ED 14:28
DX: I95.1 Orthostatic hypotension (principal); I10 Essential (primary) hypertension; I48.91 Unspecified atrial fibrillation; F41.9 Anxiety disorder, unspecified; F31.9 Bipolar disorder, unspecified; E78.5 Hyperlipidemia, unspecified; I25.10 Atherosclerotic heart disease of native coronary artery without angina pectoris; M79.7 Fibromyalgia

== ENCOUNTER 2020-08-23 09:18 | Emergency (ER) | payer MEDICARE ==
[~2020-08-23] VITALS: Ht 160 cm; Wt 85.0 kg
[~2020-08-23 09:18] MED LIST changes: +LORAZEPAM0.5 MG PO; +SUMATRIPTAN25 MG PO; +VALACYCLOVIR500 MG PO
[2020-08-23] MEDS ORDERED: LORTAB 1010 MG PO (10:02)
[2020-08-23 10:15] VITALS: BP 141/74
[2020-08-23] MEDS ORDERED: VENLAFAXINE HC150 MG PO (10:17)
[2020-08-23] MEDS ORDERED: NAPROXEN375 MG PO (10:18)
[2020-08-23] MEDS ORDERED: PREGABALIN75 MG PO (10:18)
[2020-08-23] MEDS ORDERED: AIMOVIG140 MG/ML IJ (10:20)
[2020-08-23] MEDS ORDERED: ARIPIPRAZOLE5 MG PO (10:22)
[2020-08-23] MEDS ORDERED: LAMOTRIGINE100 MG PO (10:23)
[2020-08-23] MEDS ORDERED: BUPROPN HCL150 MG PO (10:23)
[2020-08-23] MEDS ORDERED: MULTI VIT PO (10:25)
== END 2020-08-23 10:15 | disposition home or self-care (01) ==
LOC: ED 09:18
PROC: 2W3JX1Z Immobilization of Right Finger using Splint (ICD-10-PCS; principal; 2020-08-23)
DX: S62.624A Displaced fracture of middle phalanx of right ring finger, initial encounter for closed fracture (principal); I10 Essential (primary) hypertension; I48.91 Unspecified atrial fibrillation; F31.9 Bipolar disorder, unspecified; F41.9 Anxiety disorder, unspecified; I25.10 Atherosclerotic heart disease of native coronary artery without angina pectoris; E78.5 Hyperlipidemia, unspecified; W01.0XXA Fall on same level from slipping, tripping and stumbling without subsequent striking against object, initial encounter

== ENCOUNTER 2021-06-16 09:45 | Emergency (ER) | payer MEDICARE ==
[2021-06-16] VITALS (8 sets, daily range): BP systolic 103–139; BP diastolic 51–62
[~2021-06-16] VITALS: Ht 160 cm; Wt 86.6 kg
[~2021-06-16 09:45] MED LIST changes: +AIMOVIG140 MG/ML IJ; +ARIPIPRAZOLE5 MG PO; +BUPROPN HCL150 MG PO; +LAMOTRIGINE100 MG PO; +LORTAB 1010 MG PO; +MULTI VIT PO; +NAPROXEN375 MG PO; +PREGABALIN75 MG PO; +VENLAFAXINE HC150 MG PO
[2021-06-16 10:36] LABS: HEMATOCRIT 38.8 % (37.0-47.0); HEMOGLOBIN 12.8 g/dl (12.0-16.0); IMMATURE GRANULOCYTES 0.1 % (0.0-5.0); MEAN CORPUSCULAR HGB 32.3 pG CALC (26.0-32.0); NEUT# 4.87 thou/uL (2.00-7.15); RED BLOOD COUNT 3.96 mill/uL (4.20-5.60); RED CELL DISTRI WIDTH 13.7 % (11.5-15.5)
[2021-06-16 10:50] LABS: ALBUMIN 4.2 g/dL (3.2-5.0); ALKALINE PHOSPHATASE 116 u/l (38-126); ANION GAP 9 (6-22 (CALC)); BILIRUBIN, TOTAL 0.4 mg/dL (0.0-1.4); BUN 18 mg/dL (7-17); BUN/CREATININE RATIO 14 (12-20 (CALC)); CARBON DIOXIDE 30 mmol/l (22-30); CHLORIDE 106 mmol/l (95-108); CREATININE 1.3 mg/dL (0.5-1.0); GFR 42 ML/MIN (>=60 (CALC)); GFR FOR AFR.AMER. 51 ML/MIN (>=60 (CALC)); LIPASE 34 u/l (23-300); POTASSIUM 4.2 mmol/l (3.5-5.1); SGOT/AST 28 u/l (14-36); SODIUM 141 mmol/l (137-146); TOTAL PROTEIN 7.5 g/dL (6.3-8.2)
== END 2021-06-16 12:57 | disposition home or self-care (01) ==
LOC: ED 09:45
PROVIDERS: Internal Medicine
DX: R07.9 Chest pain, unspecified (principal); I10 Essential (primary) hypertension; I48.91 Unspecified atrial fibrillation; I25.10 Atherosclerotic heart disease of native coronary artery without angina pectoris; E78.5 Hyperlipidemia, unspecified; M79.7 Fibromyalgia; F41.9 Anxiety disorder, unspecified; F31.9 Bipolar disorder, unspecified

== ENCOUNTER 2022-10-09 08:56 | Observation (INO) | payer MEDICARE ==
[~2022-10-09] VITALS: Ht 160 cm; Wt 88.6 kg
[2022-10-09] VITALS (27 sets, daily range): BP systolic 83–142; BP diastolic 39–65
[~2022-10-09 08:56] MED LIST changes: -BUPROPN HCL150 MG PO; +REPATHA PU420 MG/3.5 SC; -REPATHA140 MG/ML IM
--- NOTE | 2022-10-09 08:56 | NUR ---
PT WHEELED TO ROOM 3 WITH A STEADY GAIT. BREATHING IS EVEN AND NONLABORED. PT IS ALERT ANDOX4
--- NOTE | 2022-10-09 09:30 | NUR ---
PT REQUESTING MEDICATION FOR HER HEADACHE AND NAUSEA
[2022-10-09 10:01] LABS: BASO% 0.4 % (0-3); EOS% 1.9 % (0-8); HEMATOCRIT 38.3 % (37.0-47.0); HEMOGLOBIN 12.7 g/dl (12.0-16.0); IMMATURE GRANULOCYTES 0.1 % (0.0-5.0); LYMPH% 37.6 % (15-41); MEAN CORPUSCULAR HGB 32.2 pG CALC (26.0-32.0); MEAN CORPUSCULAR HGB CONC 33.2 g/dL CAL (32.0-36.0); MONO% 7.9 % (2-13); NEUT# 4.04 thou/uL (2.00-7.15); NEUT% 52.1 % (42-76); RED BLOOD COUNT 3.95 mill/uL (4.20-5.60); RED CELL DISTRI WIDTH 14.2 % (11.5-15.5)
[2022-10-09 10:17] LABS: ALBUMIN 3.8 g/dL (3.2-5.0); ALKALINE PHOSPHATASE 91 u/l (38-126); ANION GAP 11 (6-22 (CALC)); BUN 22 mg/dL (8-23); BUN/CREATININE RATIO 19 (12-20 (CALC)); CARBON DIOXIDE 26 mmol/l (22-30); CHLORIDE 107 mmol/l (95-108); CREATININE 1.1 mg/dL (0.5-1.0); GFR FOR AFR.AMER. > 60 ML/MIN (>=60 (CALC)); GFR OTHER RACES 50 ML/MIN (>=60 (CALC)); POTASSIUM 3.7 mmol/l (3.5-5.1); SGOT/AST 33 u/l (9-36); SODIUM 140 mmol/l (137-146); TOTAL PROTEIN 6.9 g/dL (6.3-8.2)
--- NOTE | 2022-10-09 10:30 | NUR ---
PT STARTING TO FEEL BETTER. HEADACHE IS ALSO RESOLVING.
[2022-10-09 10:32] LABS: BILIRUBIN, TOTAL 0.5 mg/dL (0.02-1.3)
--- NOTE | 2022-10-09 12:30 | NUR ---
PT WAS GIVEN HER LUNCH TRAY. SHE TOLERATED WELL WITHOUT ANY NAUSEA
--- NOTE | 2022-10-09 13:30 | NUR ---
PT SLEEPING. SPOUSE AT THE BEDSIDE
--- NOTE | 2022-10-09 14:00 | NUR ---
PT LAYING IN BED, NO DISTRESS AT THIS TIME. WAITING FOR BED IN [facility]LO[facility].
--- NOTE | 2022-10-09 14:35 | NUR ---
PT LAYING IN BED, NO DISTRESS NOTED AT THIS TIME. WAITTING FOR ROOM NUMBER IN MEDSURG. AT BEDSIDE.
[2022-10-09] MEDS ORDERED: OMEPRAZOLE DR40 MG PO (14:51)
[2022-10-09] MEDS ORDERED: VALACYCLOVIR500 MG PO (14:53)
[2022-10-09] MEDS ORDERED: VRAYLAR1.5 MG PO (15:00)
[2022-10-09] MEDS ORDERED: FLECAINIDE50 MG PO (15:01)
--- NOTE | 2022-10-09 15:40 | NUR ---
REPORT TO REMY CARIASDIE HOLDER. PT TRANSPORTED ON THE CART. PT IS CURRENTLY PAIN FREE AND NAUSEA IS RESOLVED. PT IS ALERT AND OX4
--- NOTE | 2022-10-09 20:40 | NUR ---
PT IN BED AWAKE WATCHING TV. NO S/S OF DISTRES NOTED. BREATHING IS EVEN AND UNLABORED. PT STATES SHE TAKES SOME MEDICATIONS AT NIGHT BECAUSE THEY MAKE HER SLEEPY AND WOULD LIKE TO CONTINUE TO TAKES AND NIGHT HERE. MED REC COMPLETED. DR DUBOIS NOTIFIED AND MED REC COMPLETED AND WAITNG FOR TO REVIEW MED REC. SHIFT ASSESMENT COMPLETED. NO NEEDS OR CONCERN VOICED.CALL LIGHT IN REACH AND BED IN LOWEST POSITION.
[2022-10-09] MEDS ORDERED: FLONASE AL50 MCG/ACT (20:59)
[2022-10-09] MEDS ORDERED: MECLIZINE 2525 MG (21:00)
[2022-10-09] MEDS ORDERED: LEVOFLOXACIN500MG PO (21:10)
[2022-10-10 00:10] VITALS: BP 124/40
--- NOTE | 2022-10-10 00:45 | NUR ---
PT IN BED RESTING WITH EYES CLOSED BREATHING EVEN AND UNLABORED. NO S/S OF DISTRESS NOTED. CALL LIGHT IN REACH AND BED IN LOWEST POSITION.
[2022-10-10 04:15] VITALS: BP 118/58
--- NOTE | 2022-10-10 04:55 | NUR ---
PT IN BED RESTING WITH EYES CLOSED BREATHING IS EVEN AND UNLABORED. NO S/S OF DISTRESS NOTED. CALL LIGHT IN REACH AND BED IN LOWEST POSITION.
[2022-10-10 06:08] LABS: BASO% 0.2 % (0-3); EOS% 2.7 % (0-8); HEMATOCRIT 36.4 % (37.0-47.0); HEMOGLOBIN 12.2 g/dl (12.0-16.0); IMMATURE GRANULOCYTES 0.1 % (0.0-5.0); LYMPH% 46.4 % (15-41); MEAN CELL VOLUME 97.3 fL CALC (80.0-100.0); MEAN CORPUSCULAR HGB 32.6 pG CALC (26.0-32.0); MEAN CORPUSCULAR HGB CONC 33.5 g/dL CAL (32.0-36.0); MONO% 7.4 % (2-13); NEUT# 3.58 thou/uL (2.00-7.15); NEUT% 43.2 % (42-76); RED BLOOD COUNT 3.74 mill/uL (4.20-5.60); RED CELL DISTRI WIDTH 14.1 % (11.5-15.5)
[2022-10-10 06:22] LABS: ALBUMIN 3.7 g/dL (3.2-5.0); BILIRUBIN, TOTAL 0.4 mg/dL (0.02-1.3); CREATININE 1.4 mg/dL (0.5-1.0); POTASSIUM 3.7 mmol/l (3.5-5.1); TOTAL PROTEIN 6.5 g/dL (6.3-8.2)
[2022-10-10 07:07] VITALS: BP 139/58
--- NOTE | 2022-10-10 07:48 | NUR ---
BEDSIDE SHIFT REPORT, PT AWAKE ALERT AND ORIENTED RESTING IN BED, NO C/O DISCOMFORT, TELE MONITOR IN PLACE, CALL IRVIN IN REACH AND BED LOCKED IN LOWEST POSITION.
[2022-10-10 10:32] VITALS: BP 107/54
--- NOTE | 2022-10-10 11:20 | NUR ---
REALXING IN BED AWAITING MD VISIT AND INFORMATION ON PLAN OF CARE.
[2022-10-10 16:00] VITALS: BP 151/60
[2022-10-10] MEDS ORDERED: ASPIRIN ADULT L81 M2 PO (16:34)
--- NOTE | 2022-10-10 17:09 | NUR ---
Discharge instructions given. Patient verbalizes understanding of same. Discharged in good condition via Wheelchair to Home with spouse. All belongings sent with pt.
== END 2022-10-10 17:08 | disposition home or self-care (01) ==
LOC: ED 08:56 → ED-I 10:53 → ED 11:04 → MS2 11:05 → ED-I 11:05 → MS2 15:19
PROVIDERS: Family Medicine; ADMIT Student in an Organized Health Care Education/Training Program; ATTEND Student in an Organized Health Care Education/Training Program
DX: R07.9 Chest pain, unspecified (principal); I48.91 Unspecified atrial fibrillation; I10 Essential (primary) hypertension; I25.10 Atherosclerotic heart disease of native coronary artery without angina pectoris; E78.5 Hyperlipidemia, unspecified; E66.9 Obesity, unspecified; F41.9 Anxiety disorder, unspecified; F31.9 Bipolar disorder, unspecified; Z20.822 Contact with and (suspected) exposure to COVID-19; Z86.16 Personal history of COVID-19

== ENCOUNTER 2023-04-04 07:55 | Day surgery (SDC) | payer MEDICARE ==
[~2023-04-04] VITALS: Ht 162.6 cm; Wt 92.1 kg
[~2023-04-04 07:55] MED LIST changes: -AIMOVIG140 MG/ML IJ; +AIMOVIG140 MG/ML SC; +ASPIRIN ADULT L81 M2 PO; +FLONASE AL50 MCG/ACT; +LEVOFLOXACIN500MG PO; +MECLIZINE 2525 MG; +OMEPRAZOLE DR40 MG PO; +PROTONIX40 M2 PO; +VRAYLAR1.5 MG PO; +ZPAK PO
[2023-04-04] MEDS ORDERED: LACTATED RINGER'S 1,000 ML IV ONE (08:15)
[2023-04-04] MEDS ORDERED: FAMOTIDINE 10MG/ML 2ML SDV IV ONE (08:16)
[2023-04-04 09:30] VITALS: BP 142/69
[2023-04-04] MEDS ORDERED: PROPOFOL 200 MG/20 ML VIAL IV ONE (13:28)
[2023-04-04] MEDS ORDERED: GLYCOPYRROLATE 0.2 MG/ML IV ONE (13:28)
[2023-04-04] MEDS ORDERED: LIDOCAINE HCL 2% 2ML SDV IV ONE (13:28)
== END 2023-04-04 09:49 | disposition home or self-care (01) ==
LOC: ENDO 07:55 → ORM 14:30 → ENDO 14:30
PROVIDERS: ATTEND Internal Medicine Gastroenterology
PROC: 0DB98ZX Excision of Duodenum, Via Natural or Artificial Opening Endoscopic, Diagnostic (ICD-10-PCS; principal; 2023-04-04)
PROC: 0DB78ZX Excision of Stomach, Pylorus, Via Natural or Artificial Opening Endoscopic, Diagnostic (ICD-10-PCS; 2023-04-04)
DX: K29.60 Other gastritis without bleeding (principal); I48.0 Paroxysmal atrial fibrillation; Z86.010 Personal history of colon polyps

== ENCOUNTER 2024-02-20 17:32 | Observation (INO) | payer MEDICARE, OTHER ==
[2024-02-20] VITALS (9 sets, daily range): BP systolic 139–175; BP diastolic 59–73
[~2024-02-20] VITALS: Ht 160 cm; Wt 95.0 kg
[~2024-02-20 17:32] MED LIST changes: +ALBUTEROL SULFA PO; +B121000 MC1 PO; +CARAFATE1 GM PO; +COQ10200 MG PO; +ESTROVERA4 MG PO; +MELOXICAM7.5 MG PO; +MIRALAX17 GM PO; +MODAFINIL100 MG PO; +OMEGA 31000 MG PO; +PRAVASTATIN40 MG PO; +TRAMADOL HYDROC50 M1 PO; +VALTREX500 MG PO; +VITAMIN D-32000 UNI1 PO; +WELLBUTRIN XL300 MG PO; +ZYRTEC10 MG PO
--- NOTE | 2024-02-20 17:40 | NUR ---
PT TO ROOM VIA WC WITH SPOUSE
[2024-02-20] MEDS ORDERED: ASPIRIN 81 MG/TAB PO ONE (17:45)
[2024-02-20 18:18] LABS: BASO% 0.3 % (0-3); HEMATOCRIT 36.5 % (37.0-47.0); HEMOGLOBIN 11.9 g/dl (12.0-16.0); IMMATURE GRANULOCYTES 0.1 % (0.0-5.0); LYMPH% 33.2 % (15-41); MEAN CELL VOLUME 95.3 fL CALC (80.0-100.0); MEAN CORPUSCULAR HGB 31.1 pG CALC (26.0-32.0); MEAN CORPUSCULAR HGB CONC 32.6 g/dL CAL (32.0-36.0); MONO% 7.4 % (2-13); NEUT# 5.25 thou/uL (2.00-7.15); RED BLOOD COUNT 3.83 mill/uL (4.20-5.60); RED CELL DISTRI WIDTH 14.3 % (11.5-15.5)
[2024-02-20 18:31] LABS: ALKALINE PHOSPHATASE 91 u/l (38-126); ANION GAP 9 (6-22 (CALC)); BUN 18 mg/dL (8-23); BUN/CREATININE RATIO 17 (12-20 (CALC)); CARBON DIOXIDE 27 mmol/l (22-30); CHLORIDE 107 mmol/l (95-108); CREATININE 1.1 mg/dL (0.5-1.0); ESTIMATED GFR 56 ML/MIN (>=90 (CALC)); POTASSIUM 3.8 mmol/l (3.5-5.1); SGOT/AST 27 u/l (9-36); SODIUM 140 mmol/l (137-146); TOTAL PROTEIN 6.9 g/dL (6.3-8.2)
[2024-02-20 18:36] LABS: BILIRUBIN, TOTAL 0.3 mg/dL (0.02-1.3)
--- NOTE | 2024-02-20 19:30 | NUR ---
PT RESTING. ADVISED OF NEED TO REPEAT LABS/TROPS. PT RESTING.
[2024-02-20] MEDS ORDERED: ACETAMINOPHEN 325 MG/TAB PO PRN (20:50)
[2024-02-20] MEDS ORDERED: Zaleplon 5 MG/CAP PO PRN (20:50)
[2024-02-20] MEDS ORDERED: MAGNESIUM HYDROXIDE 30 ML UDC PO PRN (20:50)
[2024-02-20] MEDS ORDERED: ENOXAPARIN SODIUM 40 MG/0.4 ML SYR SC SCH (21:00)
--- NOTE | 2024-02-20 22:21 | NUR ---
PT IN CT.
--- NOTE | 2024-02-20 23:30 | NUR ---
PT RESTING. LIGHTS DIMMED. PT C/O HEADACHE. VSS. NOTIFIED.
[2024-02-20] MEDS ORDERED: oxyCODONE 5MG/ ACETAMINOPHEN 325MG TAB PO ONE (23:45)
--- NOTE | 2024-02-21 00:34 | NUR ---
PT MEDICATED. TO HOUSE.
[2024-02-21 01:00] VITALS: BP 137/60
--- NOTE | 2024-02-21 01:07 | NUR ---
REPORT TO AJITH. MED SURG
[2024-02-21 01:33] VITALS: BP 169/67
--- NOTE | 2024-02-21 01:45 | NUR ---
TO FLOOR VIA STRETCHER. NAD. A/O. HEADACHE BETTER.
--- NOTE | 2024-02-21 02:44 | NUR ---
PATIENT ADMITTED FROM ER VIA STRETCHER WITH ER STAFF IN ATTENDANCE. PATIENT C/O FEELING DIZZY AND ASSISTED TO THE BED. PATIENT IS ALERT AND ORIENTEDX3. STATES THAT SHE CAME TO THE ER TODAY FOR CHEST PAIN AND NOW C/O HEADACHE.HAS HX OF MIGRAINES. WAS MEDICATED IN THE ER WITH PERCOCET 5/325 AND HEADACHE IS IMPROVED TO 5/10 NOW. PATIENT WITH TELE MONITOR IN PLACE AND READING SR-70'S AT THIS TIME. IV SITE TO RIGHT HAND-#20 WITH GOOD BLOOD RETURN WHEN FLUSHED. LUNGS ARE CLEARA. ABD IS SOFT WITH ACTIVE BS. LAST BM WAS 02/18. ASSISTED TO THE BR AND URINE SPEC OBTAINED AND SENT TO THE LAB. ASSISTED BACK TO BED-UNSTEADY ON HER FEET. BED ALARM IN PLACE FOR PATIENT SAFETY. NO PERIPHERAL EDEMA NOTED. ASSISTED WITH PLACEING TEDS. PULSES ARE PALPABLE. ORIENTED TO ROOM AND SURROUNDINGS. INSTRUCTED ON USE OF NURSE CALL LIGHT AND TV REMOTE. CALL LIGHT IN REACH. WILL CONT TO MONITOR.
[2024-02-21 04:56] VITALS: BP 123/45
[2024-02-21 04:59] LABS: URINE BILIRUBIN - DIPSTICK Negative (NEGATIVE); URINE BLOOD DIPSTICK Negative (NEGATIVE); URINE COLOR Yellow; URINE GLUCOSE - DIPSTICK Negative (NEGATIVE); URINE KETONE Negative (NEGATIVE); URINE LEUK ESTERASE Small (NEGATIVE); URINE NITRITE - DIPSTICK Negative (Negative); URINE PH 5.5 (4.5-8.0); URINE PROTEIN - DIPSTICK Negative (NEG-TRACE); URINE UROBILINOGEN - DIPSTICK 0.2 E.U./dL (0.2)
[2024-02-21 05:12] LABS: BASO% 0.3 % (0-3); EOS% 2.8 % (0-8); HEMATOCRIT 37.3 % (37.0-47.0); HEMOGLOBIN 12.1 g/dl (12.0-16.0); IMMATURE GRANULOCYTES 0.1 % (0.0-5.0); LYMPH% 42.8 % (15-41); MEAN CELL VOLUME 98.9 fL CALC (80.0-100.0); MEAN CORPUSCULAR HGB 32.1 pG CALC (26.0-32.0); MEAN CORPUSCULAR HGB CONC 32.4 g/dL CAL (32.0-36.0); MONO% 6.9 % (2-13); NEUT# 4.28 thou/uL (2.00-7.15); NEUT% 47.1 % (42-76); RED BLOOD COUNT 3.77 mill/uL (4.20-5.60); RED CELL DISTRI WIDTH 14.3 % (11.5-15.5)
[2024-02-21 05:15] LABS: URINE BACTERIA RARE hpf; URINE RBC 0-2 RBC/hpf (0-5); URINE SQUAMOUS EPITHELIAL CELL FEW EPI/hpf (0-FEW)
[2024-02-21 05:26] LABS: ALBUMIN 3.4 g/dL (3.2-5.0); BILIRUBIN, TOTAL 0.4 mg/dL (0.02-1.3); POTASSIUM 3.7 mmol/l (3.5-5.1); TOTAL PROTEIN 5.9 g/dL (6.3-8.2)
--- NOTE | 2024-02-21 06:04 | NUR ---
PATIENT RESTING IN BED WITH HOB SLIGHTLY ELEVATED. EYES ARE CLOSED AND RESPS ARE EVEN AND UNLABORED. TELE MONITOR IN PLACE AND READING SR-64. SALINE LOCK TO RIGHT HAND INTACT. CALL LIGHT IN REACH. BED ALARM IN PLACE FOR PATIENT SAFETY. CALL LIGHT IN REACH. WILL CONT TO MONITOR.
--- NOTE | 2024-02-21 08:56 | NUR ---
PATIENT IS A/O X3; ROOM AIR; BREATHING UNLABORED AND EVEN; DENEID ANY PAIN; DNEIED ANY N/D/V AT THIS TIME; NO S/S OF DISTRESS AT THIS TIEM; TELE LEADS IN TACT AND WORKING WITH NO ISSUES; PATEINT SITTING SEMI COTA IN BED WATCHING TV AND EATING BREAKFAST; CALL LIGHT WITHIN REACH, VERBALIZED UNDERSTANDING ON HOW TO USE, PERSONAL ITEMS WITHIN REACH; BED IN LOWEST POSTION;SAFETY MEAURES IN PLACE
[2024-02-21 10:45] VITALS: BP 141/57
[2024-02-22] MEDS ORDERED: PNEUMOCOCCAL 20-VALENT CONJUGA 0.5 ML/DOSE INJ IM SCH (09:00)
[2024-02-22] MEDS ORDERED: INFLUENZA VIRUS VACCINE (FLUARIX) 2024/25 0.5 ML INJ IM SCH (09:00)
--- NOTE | 2024-02-24 11:17 | NUR ---
Discharge follow up call completed 02/24/24. Patient states she continues to have the same symptoms she had in the hospital except for the chest issues. Patient was prescribed no new medication at discharge. Patient has an appointment with her PCP on 03/06 but will check with PCP to see if they feel it is necessary to see her before that appointment timee. No needs or concerns vrbalized at this time.
== END 2024-02-21 14:13 | disposition home or self-care (01) ==
LOC: ED 17:32 → MS2 02-21 00:21
PROVIDERS: Family Medicine; Nurse Practitioner; Nurse Practitioner Family; ADMIT Internal Medicine; ATTEND Internal Medicine
DX: R07.9 Chest pain, unspecified (principal); I10 Essential (primary) hypertension; I48.0 Paroxysmal atrial fibrillation; I25.10 Atherosclerotic heart disease of native coronary artery without angina pectoris; E78.5 Hyperlipidemia, unspecified; F41.9 Anxiety disorder, unspecified; F31.9 Bipolar disorder, unspecified; F20.9 Schizophrenia, unspecified; G47.33 Obstructive sleep apnea (adult) (pediatric); Z79.01 Long term (current) use of anticoagulants
CPT/HCPCS: 90656; J1650